=== PATIENT | female | born 1965 | race Caucasian/White ===

== ENCOUNTER 2021-01-03 09:41 | Emergency (ER) | payer OTHER ==
[2021-01-03] MEDS ORDERED: FAMOTIDINE 20 MG TAB ONE (10:18)
[2021-01-03] MEDS ORDERED: METHYLPREDNISOLONE 125 MG INJ ONE (10:18)
--- NOTE | 2021-01-03 10:36 | ER ---
Nurse's Notes [facility] Name: Telma Velez Age: 55 yrs Sex: Female : 1965 Arrival Date: 01/03/2021 Time: 09:44 Bed 17 Private MD: Braden Davies T Diagnosis: Allergic contact dermatitis due to plants, except food Presentation: 01/03 09:55 Chief complaint: Patient states: itchy rash x 3 days after exposure to poison sumac. ss Coronavirus screen: Client denies travel out of the [place] in the last 14 days. Ebola Screen: Patient denies exposure to infectious person. Patient denies travel to an Ebola-affected area in the 21 days before illness onset. Initial Sepsis Screen: Does the patient meet any 2 criteria? No. Patient's initial sepsis screen is negative. Does the patient have a suspected source of infection? No. Patient's initial sepsis screen is negative. Risk Assessment: Do you want to hurt yourself or someone else? Patient reports no desire to harm self or others. 09:55 Method Of Arrival: Ambulatory ss 09:55 Acuity: DAISHA 5 ss 10:34 Onset of symptoms was December 31, 2020. ec1 Triage Assessment: 10:34 General: Behavior is calm, cooperative, appropriate for age. ec1 Historical: - Allergies: 10:00 PENICILLINS; ss 10:00 Sulfa (Sulfonamide Antibiotics); ss - PMHx: 10:00 Depression; Fibromyalgia; ss - Immunization history:: Adult Immunizations up to date. - Social history:: Smoking status: Patient denies any tobacco usage or history of. Screenin:25 Abuse screen: Denies threats or abuse. Denies injuries from another. Nutritional ec1 screening: No deficits noted. Tuberculosis screening: No symptoms or risk factors identified. Fall Risk None identified. Assessment: 09:50 General: Appears in no apparent distress. uncomfortable, well groomed. Pain: Denies ec1 pain. Respiratory: No deficits noted. Derm: Pt has rash to face, limbs, torso from Poison Eda. Same is red and inflamed. c/o feeling cold. Vital Signs: 09:50 BP 143 / 84; Pulse 102; Resp 18; Pulse Ox 97% ; ec1 09:55 BP 143 / 84; Pulse 100; Resp 16; Pulse Ox 97% on R/A; Weight 99.79 kg; Height 5 ft. 4 ss in. (162.56 cm); Pain 0/10; 10:25 BP 143 / 84; Pulse 100; Resp 16; Pulse Ox 97% ; ec1 09:55 Body Mass Index 37.76 (99.79 kg, 162.56 cm) ED Course: 09:44 Patient arrived in ED. mr 09:44 Braden Davies MD is Private Physician. mr 09:47 Josefa Rowley FNP-C is [facility]. kb 09:47 Arnold Rose MD is Attending Physician. kb 09:58 Miranda Holcomb, SETH is Primary Nurse. [id number] 09:59 Triage completed. ss 10:00 Arm band placed on right wrist. ss 10:25 Patient has correct armband on for positive identification. Bed in low position. Call ec1 light in reach. 10:25 No provider procedures requiring assistance completed. Patient did not have IV access ec1 during this emergency room visit. Administered Medications: 10:07 Drug: SOLU-Medrol 125 mg Route: IM; Site: right gluteus; ec1 10:07 Drug: Pepcid 20 mg Route: PO; ec1 Outcome: 09:53 Discharge ordered by MD. kb 10:25 Discharged to home ambulatory. ec1 10:25 Condition: stable 10:25 Discharge instructions given to patient, Instructed on discharge instructions, follow up and referral plans. medication usage, Demonstrated understanding of instructions, follow-up care, medications, Prescriptions given X 3. 10:35 Patient left the ED. ec1 Signatures: Josefa Rowley FNP-C FNP-Diamond Rebecca TrotterFannie, RN RN ss Shonda Arzola RN RN ec1 Miranda Holcomb, RN RN [id number] Corrections: (The following items were deleted from the chart) 10:33 10:25 General: Appears in no apparent distress. uncomfortable, well groomed, ec1 ec1 10:33 10:25 Pain: Denies pain. ec1 ec1 10:33 10:25 Derm: Pt has rash to face, limbs, torso from Poison Eda. Same is red and ec1 inflamed. c/o feeling cold. ec1 10:33 10:25 Respiratory: No deficits noted. ec1 ec1
[2021-01-03 10:55] VITALS: BP 143/84; O2SAT 97
--- NOTE | 2021-01-04 10:36 | EDPHYS ---
Physician Documentation [facility] Name: Telma Velez Age: 55 yrs Sex: Female : 1965 Arrival Date: 01/03/2021 Time: 09:44 Bed 17 Private MD: Braden Davies T ED Physician Arnold Rose HPI: 01/03 19:24 This 55 yrs old Female presents to ER via Ambulatory with complaints of kb poison eda. 19:24 The patient's rash thought to be caused by Contact allergy poison sumak. The rash is kb located on the body diffusely. Onset: The symptoms/episode began/occurred 5 day(s) ago. Associated signs and symptoms: Pertinent positives: itching, Pertinent negatives: burning sensation, difficulty breathing, fever, nausea, Pain swelling of lips, swelling of throat, swelling of tongue, vomiting, wheezing. Severity of symptoms: At their worst the symptoms were moderate in the emergency department the symptoms are unchanged. Treatment given at home: OTC lotion/cream. The patient has experienced similar episodes in the past, a few times. The patient has not recently seen a physician. Historical: - Allergies: 10:00 PENICILLINS; ss 10:00 Sulfa (Sulfonamide Antibiotics); ss - PMHx: 10:00 Depression; Fibromyalgia; ss - Immunization history:: Adult Immunizations up to date. - Social history:: Smoking status: Patient denies any tobacco usage or history of. ROS: 19:23 Constitutional: Negative for fever, chills, and weight loss, Cardiovascular: Negative kb for chest pain, palpitations, and edema, Respiratory: Negative for shortness of breath, cough, wheezing, and pleuritic chest pain, Abdomen/GI: Negative for abdominal pain, nausea, vomiting, diarrhea, and constipation, MS/Extremity: Negative for injury and deformity, Neuro: Negative for headache, weakness, numbness, tingling, and seizure. 19:23 Skin: Positive for rash, diffusely. Exam: 19:23 Constitutional: This is a well developed, well nourished patient who is awake, alert, kb and in no acute distress. Head/Face: Normocephalic, atraumatic. Cardiovascular: Regular rate and rhythm with a normal S1 and S2. No gallops, murmurs, or rubs. Normal PMI, no JVD. No pulse deficits. Respiratory: Lungs have equal breath sounds bilaterally, clear to auscultation and percussion. No rales, rhonchi or wheezes noted. No increased work of breathing, no retractions or nasal flaring. Abdomen/GI: Soft, non-tender, with normal bowel sounds. No distension or tympany. No guarding or rebound. No evidence of tenderness throughout. Neuro: Awake and alert, GCS 15, oriented to person, place, time, and situation. Cranial nerves II-XII grossly intact. Motor strength 5/5 in all extremities. Sensory grossly intact. Cerebellar exam normal. Normal gait. 19:23 Skin: rash a moderate rash is noted, consistent with contact dermatitis, and is diffusely located. Vital Signs: 09:50 BP 143 / 84; Pulse 102; Resp 18; Pulse Ox 97% ; ec1 09:55 BP 143 / 84; Pulse 100; Resp 16; Pulse Ox 97% on R/A; Weight 99.79 kg; Height 5 ft. 4 ss in. (162.56 cm); Pain 0/10; 10:25 BP 143 / 84; Pulse 100; Resp 16; Pulse Ox 97% ; ec1 09:55 Body Mass Index 37.76 (99.79 kg, 162.56 cm) ss MDM: 09:47 Patient medically screened. kb 19:23 Data reviewed: vital signs, nurses notes. Data interpreted: Pulse oximetry: on room air kb is 97 %. Interpretation: normal. Counseling: I had a detailed discussion with the patient and/or guardian regarding: the historical points, exam findings, and any diagnostic results supporting the discharge/admit diagnosis, the need for outpatient follow up, a family practitioner, to return to the emergency department if symptoms worsen or persist or if there are any questions or concerns that arise at home. 19:27 ED course: Some areas of skin broken with redness surrounding. Keflex prescribed for kb secondary infection. Administered Medications: 10:07 Drug: SOLU-Medrol 125 mg Route: IM; Site: right gluteus; ec1 10:07 Drug: Pepcid 20 mg Route: PO; ec1 Disposition: 01/03/21 09:53 Discharged to Home. Impression: Allergic contact dermatitis due to plants, except food. - Condition is Stable. - Discharge Instructions: Poison Eda Dermatitis, [id number]. - Prescriptions for Keflex 500 mg Oral Capsule - take 1 capsule by ORAL route every 12 hours for 7 days; 14 capsule. Pepcid 20 mg Oral Tablet - take 1 tablet by ORAL route every 12 hours for 5 days; 10 tablet. Prednisone 20 mg Oral Tablet - take 1 tablet by ORAL route once daily for 5 days; 5 tablet. - Work release form, Medication Reconciliation Form, Thank You Letter, Antibiotic Education, Prescription Opioid Use form. - Follow up: Emergency Department; When: As needed; Reason: Worsening of condition. Follow up: Private Physician; When: 2 - 3 days; Reason: Recheck today's complaints, Continuance of care, Re-evaluation by your physician. Addendum: 01/06/2021 05:57 Co-signature as Attending Physician, Arnold Rose MD I agree with the assessment and k dr plan of care. Signatures: Josefa Rowley, BOWLING ALLEY REFINISHER-C BOWLING ALLEY REFINISHER-Ckb Arnold Rose MD MD [facility] Fannie Souza RN RN ss Shonda Arzola RN RN ec1 Corrections: (The following items were deleted from the chart) 01/03 10:35 09:53 01/03/2021 09:53 Discharged to Home. Impression: Allergic contact dermatitis due ec1 to plants, except food. Condition is Stable. Forms are Medication Reconciliation Form, Thank You Letter, Antibiotic Education, Prescription Opioid Use. Follow up: Emergency Department; When: As needed; Reason: Worsening of condition. Follow up: Private Physician; When: 2 - 3 days; Reason: Recheck today's complaints, Continuance of care, Re-evaluation by your physician. kb 19:27 19:24 Onset: The symptoms/episode began/occurred last week, kb kb
== END 2021-01-03 10:35 | disposition home or self-care (01) ==
LOC: ER 09:41
DX: L23.7 Allergic contact dermatitis due to plants, except food (principal); Z88.0 Allergy status to penicillin; Z88.2 Allergy status to sulfonamides
CPT/HCPCS: 96372; 99283; J2930

== ENCOUNTER 2021-01-05 11:41 | Emergency (ER) | payer OTHER ==
--- NOTE | 2021-01-05 13:48 | ER ---
Nurse's Notes [facility] Name: Telma Velez Age: 55 yrs Sex: Female : 1965 Arrival Date: 01/05/2021 Time: 11:45 Bed 6 Private MD: Diagnosis: Allergic contact dermatitis Presentation: 01/05 11:58 Chief complaint: Patient states: poison sumac exposure on Wednesday and was seen here on sv Wednesday. c/o chills. Coronavirus screen: Client denies travel out of the [place] in the last 14 days. At this time, the client does not indicate any symptoms associated with coronavirus-19. Ebola Screen: No symptoms or risks identified at this time. Risk Assessment: Do you want to hurt yourself or someone else? Patient reports no desire to harm self or others. Onset of symptoms was December 31, 2020. 11:58 Method Of Arrival: Ambulatory 11:58 Acuity: DAISHA 4 sv 11:59 Initial Sepsis Screen: Does the patient meet any 2 criteria? No. Patient's initial sv sepsis screen is negative. Does the patient have a suspected source of infection? No. Patient's initial sepsis screen is negative. Triage Assessment: 12:00 General: Appears in no apparent distress. uncomfortable, well groomed, well developed, sv Behavior is calm, cooperative, appropriate for age. Neuro: Level of Consciousness is awake, alert, obeys commands, Oriented to person, place, time, situation, Moves all extremities. Full function. Respiratory: Airway is patent Respiratory effort is even, unlabored, Respiratory pattern is regular, symmetrical. 14:23 Pain: Denies pain. ll1 Historical: - Allergies: 11:59 PENICILLINS; sv 11:59 Sulfa (Sulfonamide Antibiotics); sv - PMHx: 11:59 Depression; Fibromyalgia; sv - Immunization history:: Adult Immunizations. - Social history:: Smoking status: Patient denies any tobacco usage or history of. - Family history:: not pertinent. Screenin:22 Abuse screen: Denies threats or abuse. Nutritional screening: No deficits noted. ll1 Tuberculosis screening: No symptoms or risk factors identified. Fall Risk None identified. Total Coleman Fall Scale indicates No Risk (0-24 pts). Assessment: 13:00 Reassessment: No changes from previously documented assessment. Patient and/or family ll1 updated on plan of care and expected duration. Pain level reassessed. Patient is alert, oriented x 3, equal unlabored respirations, skin warm/dry/pink. 14:00 Reassessment: No changes from previously documented assessment. Patient and/or family ll1 updated on plan of care and expected duration. Pain level reassessed. Patient is alert, oriented x 3, equal unlabored respirations, skin warm/dry/pink. Vital Signs: 11:59 BP 159 / 94; Pulse 86; Resp 18; Temp 98.7; Pulse Ox 100% ; Weight 102.97 kg; Height 5 sv ft. 4 in. (162.56 cm); Pain 0/10; 11:59 Body Mass Index 38.97 (102.97 kg, 162.56 cm) sv ED Course: 11:45 Patient arrived in ED. mr 11:57 Arm band placed on. sv 11:59 Triage completed. sv 12:32 Patient placed in an exam room, on a stretcher. ll1 12:33 Khanh Arreaga MD is Attending Physician. [facility] 12:52 Vidal Orosco RN is Primary Nurse. ll1 14:22 Patient has correct armband on for positive identification. Bed in low position. Call ll1 light in reach. Side rails up X 1. Cardiac monitoring not applicable on this patient. 14:22 No provider procedures requiring assistance completed. Patient did not have IV access ll1 during this emergency room visit. Administered Medications: 14:01 Drug: predniSONE 40 mg Route: PO; ll1 14:21 Follow up: Response: No adverse reaction; RASS: Alert and Calm (0) ll1 14:01 Drug: Pepcid 40 mg Route: PO; ll1 14:21 Follow up: Response: No adverse reaction; RASS: Alert and Calm (0) ll1 14:01 Drug: Benadryl 50 mg Route: PO; ll1 14:21 Follow up: Response: No adverse reaction; RASS: Alert and Calm (0) ll1 Outcome: 13:47 Discharge ordered by . fabiola 14:22 Discharged to home ambulatory. ll1 14:22 Condition: stable 14:22 Discharge instructions given to patient, Instructed on discharge instructions, follow up and referral plans. medication usage, Demonstrated understanding of instructions, follow-up care, medications, Prescriptions given X 3. 14:23 Patient left the ED. ll1 Signatures: Dorothy Huffman RN RN Khanh Morales MD MD [facility] mr Vidal Orosco RN RN ll1 Corrections: (The following items were deleted from the chart) 12:01 11:59 Pulse 86bpm; Resp 18bpm; Pulse Ox 100%; Temp 98.7F; 102.97 kg; Height 5 ft. 4 sv in.; BMI: 38.9; Pain 0/10; sv
--- NOTE | 2021-01-05 13:48 | EDPHYS ---
Physician Documentation [facility] Name: Telma Velez Age: 55 yrs Sex: Female : 1965 Arrival Date: 01/05/2021 Time: 11:45 Bed 6 Private MD: ED Physician Khanh Arreaga HPI: 01/05 13:39 This 55 yrs old Female presents to ER via Ambulatory with complaints of fabiola Poison Eda. 13:39 The patient's rash thought to be caused by Dermatitis Contact allergy. The rash is fabiola located on the body diffusely. The rash can be described as confluent, erythematous, raised. Onset: The symptoms/episode began/occurred 1 week(s) ago. Associated signs and symptoms: Pertinent positives: burning sensation, itching, Pain. Severity of symptoms: At their worst the symptoms were moderate in the emergency department the symptoms are unchanged. The patient presents with itching, rash, redness of skin. Associated signs and symptoms: Pertinent positives: rash. Possible causes: poison eda, poison oak. Historical: - Allergies: 11:59 PENICILLINS; sv 11:59 Sulfa (Sulfonamide Antibiotics); sv - PMHx: 11:59 Depression; Fibromyalgia; sv - Immunization history:: Adult Immunizations. - Social history:: Smoking status: Patient denies any tobacco usage or history of. - Family history:: not pertinent. ROS: 13:39 Constitutional: Negative for fever, chills, and weight loss, Eyes: Negative for injury, fabiola pain, redness, and discharge, ENT: Negative for injury, pain, and discharge, Neck: Negative for injury, pain, and swelling, Cardiovascular: Negative for chest pain, palpitations, and edema, Respiratory: Negative for shortness of breath, cough, wheezing, and pleuritic chest pain, Abdomen/GI: Negative for abdominal pain, nausea, vomiting, diarrhea, and constipation, Back: Negative for injury and pain, : Negative for injury, bleeding, discharge, and swelling, MS/Extremity: Negative for injury and deformity, Neuro: Negative for headache, weakness, numbness, tingling, and seizure, Psych: Negative for depression, anxiety, suicide ideation, homicidal ideation, and hallucinations, Allergy/Immunology: Negative for hives, rash, and allergies, Endocrine: Negative for neck swelling, polydipsia, polyuria, polyphagia, and marked weight changes. 13:39 Skin: Positive for erythema, rash, swelling, diffusely. Exam: 13:39 Constitutional: This is a well developed, well nourished patient who is awake, alert, fabiola and in no acute distress. Head/Face: Normocephalic, atraumatic. Eyes: Pupils equal round and reactive to light, extra-ocular motions intact. Lids and lashes normal. Conjunctiva and sclera are non-icteric and not injected. Cornea within normal limits. Periorbital areas with no swelling, redness, or edema. ENT: Nares patent. No nasal discharge, no septal abnormalities noted. Tympanic membranes are normal and external auditory canals are clear. Oropharynx with no redness, swelling, or masses, exudates, or evidence of obstruction, uvula midline. Mucous membranes moist. Neck: Trachea midline, no thyromegaly or masses palpated, and no cervical lymphadenopathy. Supple, full range of motion without nuchal rigidity, or vertebral point tenderness. No Meningismus. Chest/axilla: Normal chest wall appearance and motion. Nontender with no deformity. No lesions are appreciated. Cardiovascular: Regular rate and rhythm with a normal S1 and S2. No gallops, murmurs, or rubs. Normal PMI, no JVD. No pulse deficits. Respiratory: Lungs have equal breath sounds bilaterally, clear to auscultation and percussion. No rales, rhonchi or wheezes noted. No increased work of breathing, no retractions or nasal flaring. Abdomen/GI: Soft, non-tender, with normal bowel sounds. No distension or tympany. No guarding or rebound. No evidence of tenderness throughout. Back: No spinal tenderness. No costovertebral tenderness. Full range of motion. Female : Normal external genitalia. MS/ Extremity: Pulses equal, no cyanosis. Neurovascular intact. Full, normal range of motion. Neuro: Awake and alert, GCS 15, oriented to person, place, time, and situation. Cranial nerves II-XII grossly intact. Motor strength 5/5 in all extremities. Sensory grossly intact. Cerebellar exam normal. Normal gait. Psych: Awake, alert, with orientation to person, place and time. Behavior, mood, and affect are within normal limits. 13:39 Skin: Appearance: Color: normal in color, pink, Temperature: normal temperature, Moisture: normal moisture, petechiae, not noted, ecchymosis, not noted, abscess, not appreciated, cellulitis, is not appreciated, injury, is not appreciated, contact dermatitis. Vital Signs: 11:59 BP 159 / 94; Pulse 86; Resp 18; Temp 98.7; Pulse Ox 100% ; Weight 102.97 kg; Height 5 sv ft. 4 in. (162.56 cm); Pain 0/10; 11:59 Body Mass Index 38.97 (102.97 kg, 162.56 cm) sv MDM: 12:33 Patient medically screened. [facility] 13:39 Differential diagnosis: allergic reaction, angioedema, urticaria. Data reviewed: vital fabiola signs, nurses notes. Data interpreted: residential monitor: not applicable for this patient encounter. rate is 86 beats/min, rhythm is regular, Pulse oximetry: on room air is 100 %. Counseling: I had a detailed discussion with the patient and/or guardian regarding: the historical points, exam findings, and any diagnostic results supporting the discharge/admit diagnosis, the need for outpatient follow up, for definitive care, a customer service leader, a family practitioner. Administered Medications: 14:01 Drug: predniSONE 40 mg Route: PO; ll1 14:21 Follow up: Response: No adverse reaction; RASS: Alert and Calm (0) ll1 14:01 Drug: Pepcid 40 mg Route: PO; ll1 14:21 Follow up: Response: No adverse reaction; RASS: Alert and Calm (0) ll1 14:01 Drug: Benadryl 50 mg Route: PO; ll1 14:21 Follow up: Response: No adverse reaction; RASS: Alert and Calm (0) ll1 Disposition: 01/05/21 13:47 Discharged to Home. Impression: Allergic contact dermatitis. - Condition is Stable. - Discharge Instructions: Poison Eda Dermatitis, Poison Eda Dermatitis, [id number]. - Prescriptions for Hydroxyzine HCl 50 mg Oral Tablet - take 1 tablet by ORAL route every 8 hours As needed; 20 tablet. Pepcid 20 mg Oral Tablet - take 1 tablet by ORAL route every 12 hours for 15 days; 30 tablet. Prednisone 20 mg Oral Tablet - take 2 tablet by ORAL route once daily for 5 days; 10 tablet. - Work release form, Medication Reconciliation Form, Thank You Letter, Antibiotic Education, Prescription Opioid Use form. - Follow up: Private Physician; When: 2 - 3 days; Reason: Recheck today's complaints, Continuance of care, Re-evaluation by your physician. - Problem is new. - Symptoms have improved. Signatures: Dorothy Huffman, RN RN Khanh Morales MD MD cha Lewis, Lynsay, RN RN ll1 Corrections: (The following items were deleted from the chart) 14:23 13:47 01/05/2021 13:47 Discharged to Home. Impression: Allergic contact dermatitis. ll1 Condition is Stable. Forms are Medication Reconciliation Form, Thank You Letter, Antibiotic Education, Prescription Opioid Use. Follow up: Private Physician; When: 2 - 3 days; Reason: Recheck today's complaints, Continuance of care, Re-evaluation by your physician. Problem is new. Symptoms have improved. fabiola
[2021-01-05] MEDS ORDERED: FAMOTIDINE 20 MG TAB ONE (14:14)
[2021-01-05] MEDS ORDERED: DIPHENHYDRAMINE 25 MG TAB/CAP ONE (14:14)
[2021-01-05] MEDS ORDERED: predniSONE 20 MG TAB ONE (14:14)
[2021-01-05 14:31] VITALS: BP 159/94; TEMP 98.7; O2SAT 100
== END 2021-01-05 14:23 | disposition home or self-care (01) ==
LOC: ER 11:41
DX: L23.9 Allergic contact dermatitis, unspecified cause (principal); Z88.0 Allergy status to penicillin; Z88.2 Allergy status to sulfonamides
CPT/HCPCS: 99283; J7512

== ENCOUNTER 2022-07-14 15:36 | Inpatient (IN) | payer OTHER ==
--- OUTSIDE RECORDS SUMMARY | 2022-07-14 15:38 | XMS REPORT | Continuity of Care Document ---
:1965 Author Organization [facility] t Address [address] [place] [address] Care Team Providers Name Role Phone DEREK CESAR Primary Care Physician Unavailable Harika Campbell Attending Clinician Unavailable Annabelle MAURO, Rocco Attending Clinician ROCCO NOGUERA Attending Clinician Unavailable Payers Payer Name Policy Type Policy Number Effective Date Expiration Date S ource Problems Condition Condition Condition Status Onset Resolution Last Treating Co mments Source Name Details Category Date Date Treatment Clinician Date Colon Colon Disease Active [facility] cancer cancer 6-15 [place] Scre[place] Scre[place] Disease Active Uni vers for for 6-15 [place] malignant malignant [place] [facility] of the of the Branch cervix cervix BMI BMI Disease Active Univers 40.0-44.9, 40.0-44.9, 6-15 it y of adult adult 00:00: [place] 00 [facility] Allergies, Adverse Reactions, Alerts Allergy Allergy Status Severity Reaction(s) Onset Inactive Treating Comm ents Source Name Type Date Date Clinician Penicill Propensi Active Unknown - Uni vers in ty to See comments 6-14 ity of adverse 00:00: [place] reaction 00 Medical s Branch Sulfur Propensi Active Unknown - PRODUCTS Uni vers ty to See comments 6-14 ity of adverse 00:00: [place] reaction 00 Medical s Branch PENICILL DRUG Active Unknown-Cmnt Un patricio IN [place]GRED[place] 04-21 ity of 00:00: [place] 00 Medical Branch SULFUR DRUG Active Unknown-Cmnt Univ ers [place] 04-21 ity of 00:00: [place] 00 Medical Branch Social History Social Habit Start Date Stop Date Quantity Comments Source Alcohol intake 2022-04-22 2022-04-22 1.43 /d [facility] 00:00:00 00:00:00 [facility] Tobacco use and 2022-04-21 2022-04-21 Never used [facility] exposure 00:00:00 00:00:00 [facility] Exposure to 2022-04-10 2022-04-20 Not sure [facility] SARS-CoV-2 (event) 00:00:00 14:49:00 Medica l [place] History of tobacco 1989-11-08 Smoker [facility] use 00:00:00 [facility] Sex Assigned At [birth year] [facility] 00:00:00 00:00:00 [facility] Smoking Status Start Date Stop Date Source Former smoker 2022-04-21 00:00:00 2022-04-21 00:00:00 [facility] Medications Ordered Filled Start Stop Current Ordering Indication Dosage Frequency Signature Comments Components Source Medication Medication Date Date Medication? Clinician (SIG) Name Name candesartan Yes 1{tbl} Take 1 Un patricio -hydrochlor 5-25 tablet by ity of othiazide 00:00: mouth [place] 16-12.5 mg 00 every Medical per tablet morning. Branc h pregabalin Yes TAKE ONE Uni vers 50 mg 5-03 (1) it[place] of capsule 00:00[place] BY M[place]TH Medical TWICE A Branch DAY. FLUoxetine Yes TAKE ONE Uni vers 20 mg 4-29 (1) it[place] of capsule 00:00[place] BY MOUTH Medical EVERY Branch MORNING. Immunizations Ordered Filled Immunization Date Status Comments Sourc e Immunization Name Name SARS-COV-2 COVID-19 2021-11-10 Completed Unive rsity of MODERNA VACCINE 00:00:00 [facility] ica Branch SARS-COV-2 COVID-19 2021-03-11 Completed Unive rsity of MODERNA VACCINE 00:00:00 [facility] SARS-COV-2 COVID-19 2021-02-11 Completed Unive rsity of MODERNA VACCINE 00:00:00 [facility] Vital Signs Vital Name Observation Time Observation Value Comments Source Systolic blood 2022-04-21 19:49:00 126 mm[Hg] Univer sity of pressure [facility] Diastolic blood 2022-04-21 19:49:00 78 mm[Hg] Unive rsity of pressure [facility] Heart rate 2022-04-21 19:49:00 78 /min [facility] Body temperature 2022-04-21 19:49:00 [facility] height 2022-04-21 19:49:00 162.6 cm [facility] Body weight 2022-04-21 19:49:00 109.272 kg [facility] BMI 2022-04-21 19:49:00 41.35 kg/m2 [facility] Procedures Procedure Date / Time Performed Performing Clinician [facility] e PAP SMEAR-LIQUID 2022-04-21 20:04:00 Rocco Noguera [facility] Encounters Start End Encounter Admission Attending Care Care Encounter Source Date/Time Date/Time Type Type Clinicians Facility Department ID 2021-12-03 Outpatient Anujchristofer [facility] [id number] Common 14:37:05 Harika [facility] - [facility] 2022-04-21 2022-04-21 Office Annabelle [facility] [place] [id number] Univers 14:30:00 15:06:08 Visit Rocco VENTURA [id number] it y of WOMEN'S [id number] [facility] Smackages [id number] [facility] [address] Branch 2022-04-21 2022-04-21 Outpatient R ROCCO NOGUERA [facility] [id number] Univers 14:30:00 15:06:08 ROCCO NOGUERA [facility] Results This patient has no known results.
[2022-07-14] MEDS ORDERED: ASPIRIN 81 MG CHEWABLE TABLET ONE (17:00)
[2022-07-14] MEDS ORDERED: METOPROLOL TAR 25 MG TAB ONE (17:01)
[2022-07-14 17:19] LABS: Protime INR 1.04
[2022-07-14 17:20] LABS: Absolute Lymphocytes (CBC) 1.3 K/uL (0.7-4.9); Hematocrit 37.7 % (36.0-45.0); MPV 8.7 fL (7.6-11.3); RBC Red Blood Cell Count 4.14 M/uL (3.86-4.86)
[2022-07-14 17:32] LABS: Albumin 3.3 g/dL (3.4-5.0); Bilirubin Direct 0.1 mg/dL (0-0.2); Bilirubin Total 0.6 mg/dL (0.2-1.0); Protein, Total 6.7 g/dL (6.4-8.2); Troponin High Sensitivity 8.7 pg/mL (<58.9)
[2022-07-14 17:44] LABS: SARS-CoV-2 Antigen Rapid Res Negative (Negative)
--- NOTE | 2022-07-14 18:17 | ER ---
Nurse's Notes [facility] Name: Telma Velez Age: 57 yrs Sex: Female : 1965 Arrival Date: 07/14/2022 Time: 15:37 Bed 17 Private MD: Braden Davies T Diagnosis: Unspecified atrial fibrillation Presentation: 07/14 16:16 Chief complaint: Patient states: SOB X [address] Davies today - was told to ld1 come to ER due to SOB and irregular heart rate. SpO2 94% RA. Coronavirus screen: At this time, the client does not indicate any symptoms associated with coronavirus-19. Ebola Screen: No symptoms or risks identified at this time. Initial Sepsis Screen: Does the patient meet any 2 criteria? No. Patient's initial sepsis screen is negative. Does the patient have a suspected source of infection? No. Patient's initial sepsis screen is negative. Risk Assessment: Do you want to hurt yourself or someone else? Patient reports no desire to harm self or others. Onset of symptoms was July 14, 2022. 16:16 Method Of Arrival: Ambulatory ld1 16:16 Acuity: DAISHA 3 ld1 Triage Assessment: 16:18 General: Appears in no apparent distress. comfortable, Behavior is calm, cooperative, ld1 appropriate for age. Pain: Complains of pain in lateral aspect of right calf, right calf, medial aspect of right calf and right bello Pain does not radiate. Pain currently is 0 out of 10 on a pain scale. at worst was 7 out of 10 on a pain scale. Quality of pain is described as throbbing, Pain began suddenly, Is intermittent. EENT: No signs and/or symptoms were reported regarding the EENT system. Neuro: Level of Consciousness is awake, alert, obeys commands, Oriented to person, place, time, situation. Cardiovascular: Capillary refill < 3 seconds Patient's skin is warm and dry. Rhythm is irregular. Respiratory: Airway is patent Respiratory effort is even, unlabored, Onset: The symptoms/episode began/occurred 4 days ago, the patient has mild shortness of breath. GI: Abdomen is round non-distended. : No signs and/or symptoms were reported regarding the genitourinary system. Derm: No signs and/or symptoms reported regarding the dermatologic system. Musculoskeletal: No signs and/or symptoms reported regarding the musculoskeletal system. Historical: - Allergies: 16:18 PENICILLINS; ld1 16:18 Sulfa (Sulfonamide Antibiotics); ld1 - PMHx: 16:18 Depression; Fibromyalgia; ld1 - PSHx: 16:18 None; ld1 - Immunization history:: Adult Immunizations up to date, Client reports receiving the 2nd dose of the Covid vaccine. - Social history:: Smoking status: Patient denies any tobacco usage or history of. Patient/guardian denies using alcohol. Screenin:12 Abuse screen: Denies threats or abuse. Denies injuries from another. Nutritional tp1 screening: No deficits noted. Tuberculosis screening: No symptoms or risk factors identified. Fall Risk No fall in past 12 months (0 pts). No secondary diagnosis (0 pts). IV access (20 points). Ambulatory Aid- None/Bed Rest/Nurse Assist (0 pts). Gait- Normal/Bed Rest/Wheelchair (0 pts) Mental Status- Oriented to own ability (0 pts). Total Coleman Fall Scale indicates No Risk (0-24 pts). Assessment: 16:42 General: Appears in no apparent distress. comfortable, Behavior is calm, cooperative. tp1 Pain: Complains of pain in right knee Pain radiates to right leg Pain currently is 3 out of 10 on a pain scale. at worst was 7 out of 10 on a pain scale. Quality of pain is described as throbbing, Pain began 1 week. Neuro: Level of Consciousness is awake, alert, obeys commands, Oriented to person, place, time, situation, Reports blurred vision headache. Cardiovascular: Capillary refill < 3 seconds in bilateral fingers toes Patient's skin is warm and dry. Respiratory: Reports shortness of breath at rest on exertion Airway is patent Respiratory effort is even, unlabored, Breath sounds with wheezes bilaterally. on expiration. GI: Abdomen is round non-distended, Reports diarrhea, Patient currently denies nausea, vomiting. : No signs and/or symptoms were reported regarding the genitourinary system. EENT: No signs and/or symptoms were reported regarding the EENT system. Derm: Skin is pink, warm \T\ dry. Musculoskeletal: Circulation, motion, and sensation intact. 17:51 Reassessment: Patient appears in no apparent distress at this time. Patient and/or tp1 family updated on plan of care and expected duration. Pain level reassessed. Patient is alert, oriented x 3, equal unlabored respirations, skin warm/dry/pink. denies pain and SOB at this time. 18:05 Reassessment: ultrasound at bedside. tp1 18:50 Reassessment: Patient appears in no apparent distress at this time. Patient and/or tp1 family updated on plan of care and expected duration. Pain level reassessed. Patient is alert, oriented x 3, equal unlabored respirations, skin warm/dry/pink. Patient denies pain at this time. Vital Signs: 16:16 BP 158 / 116; Pulse 96; Resp 20; Temp 98.3(O); Pulse Ox 94% on R/A; Weight 106.59 kg; ld1 Height 5 ft. 3 in. (160.02 cm); Pain 0/10; 16:49 BP 146 / 98; Pulse 101; Resp 15; Pulse Ox 97% on R/A; vg1 17:59 BP 150 / 95; Pulse 91; Resp 16; Pulse Ox 98% on R/A; tp1 16:16 Body Mass Index 41.63 (106.59 kg, 160.02 cm) ld1 ED Course: 15:37 Patient arrived in ED. am2 15:37 Braden Davies MD is Private Physician. am2 15:59 [facility] cp 16:00 Brendon Katz MD is Attending Physician. cp 16:18 Triage completed. ld1 16:18 Arm band placed on right wrist. EKG completed in triage. Results shown to MD. ld1 16:27 Inserted saline lock: 20 gauge in right antecubital area, using aseptic technique. ld1 Blood collected. 16:47 Suzi Rubio, SETH is Primary Nurse. tp1 16:49 Patient has correct armband on for positive identification. Placed in gown. Bed in low vg1 position. Call light in reach. Side rails up X 1. Adult w/ patient. Client placed on continuous cardiac and pulse oximetry monitoring. NIBP monitoring applied. 18:16 Rashad Olvera MD is Hospitalizing Provider. cp 19:25 No provider procedures requiring assistance completed. Patient admitted, IV remains in lg3 place. intact, No redness/swelling at site. 20:30 role handed off by Jessica Staples RN Administered Medications: 16:56 Drug: Metoprolol 25 mg Route: PO; tp1 19:26 Follow up: Response: No adverse reaction; Marked relief of symptoms lg3 16:56 Drug: Aspirin Chewable Tablet 324 mg Route: PO; tp1 19:26 Follow up: Response: No adverse reaction lg3 18:30 Drug: Lovenox (enoxaparin) 1 mg/kg Route: Sub-Q; Site: right lower abdomen; tp1 19:25 Follow up: Response: No adverse reaction lg3 Medication: 16:49 VIS not applicable for this client. vg1 Outcome: 18:17 Decision to Hospitalize by Provider. cp 19:25 Admitted to ER Hold. Please see [facility] for further documentation. lg3 19:25 Condition: stable 19:25 Instructed on the need for admit, Demonstrated understanding of instructions. 07/15 21:19 Patient left the ED. vc1 Signatures: Khanh Hensley PA PA cp Sharri Lang am2 Brooklynn Marie RN RN lg3 Jessica Staples RN RN vg1 Milady Dietrich RN RN ld1 Radha Castellon Tiffany, RN RN tp1 Kriss Preciado RN RN vc1 Corrections: (The following items were deleted from the chart) 07/14 17:13 16:42 Respiratory: Reports shortness of breath at rest on exertion Airway is patent tp1 Respiratory effort is even, unlabored, tp1 17:19 16:42 Respiratory: Reports shortness of breath at rest on exertion Airway is patent tp1 Respiratory effort is even, unlabored, tp1 18:30 18:29 Lovenox (enoxaparin) 1 mg/kg Sub-Q in right lower abdomen tp1 tp1
--- NOTE | 2022-07-14 18:17 | EDPHYS ---
Physician Documentation [facility] Name: Telma Velez Age: 57 yrs Sex: Female : 1965 Arrival Date: 07/14/2022 Time: 15:37 Bed 17 Private MD: Braden Davies T ED Physician Brendon Katz HPI: 07/14 16:30 This 57 yrs old Female presents to ER via Ambulatory with complaints of afib. cp 16:30 The patient has shortness of breath with light activity. cp 16:30 Onset: The symptoms/episode began/occurred 5 day(s) ago. Duration: The symptoms are cp continuous, and are steadily getting worse. The patient's shortness of breath is aggravated by light activity, is alleviated by rest. Associated signs and symptoms: Pertinent positives: right lower leg pain and swelling, Pertinent negatives: chest pain, productive cough, diaphoresis, fever, vomiting. Historical: - Allergies: 16:18 PENICILLINS; ld1 16:18 Sulfa (Sulfonamide Antibiotics); ld1 - PMHx: 16:18 Depression; Fibromyalgia; ld1 - PSHx: 16:18 None; ld1 - Immunization history:: Adult Immunizations up to date, Client reports receiving the 2nd dose of the Covid vaccine. - Social history:: Smoking status: Patient denies any tobacco usage or history of. Patient/guardian denies using alcohol. ROS: 16:35 Constitutional: Negative for body aches, chills, fever, poor PO intake. cp 16:35 Cardiovascular: Negative for chest pain, edema. 16:35 Respiratory: Positive for shortness of breath, on exertion. Negative for cough, wheezing. 16:35 Abdomen/GI: Negative for abdominal pain, nausea, vomiting, and diarrhea. Exam: 16:25 ECG was reviewed by the Attending Physician. cp 16:40 Constitutional: The patient appears in no acute distress, alert, awake, cp non-diaphoretic, non-toxic, well developed, well nourished. 16:40 Head/Face: Normocephalic, atraumatic. cp 16:40 Eyes: Periorbital structures: appear normal, Conjunctiva: normal, no exudate, no injection, Sclera: no appreciated abnormality, Lids and lashes: appear normal, bilaterally. 16:40 ENT: External ear(s): are unremarkable, Nose: is normal, Mouth: Lips: moist, Oral mucosa: moist, Posterior pharynx: Airway: no evidence of obstruction, patent. 16:40 Chest/axilla: Inspection: normal. 16:40 Cardiovascular: Rate: tachycardic, Rhythm: irregular, Edema: ankle edema, that is mild, JVD: is not appreciated. 16:40 Respiratory: the patient does not display signs of respiratory distress, Respirations: normal, no use of accessory muscles, no retractions, labored breathing, is not present, Breath sounds: are clear throughout, no decreased breath sounds, no stridor, no wheezing. 16:40 Abdomen/GI: Exam negative for discomfort, distension, guarding, Inspection: abdomen appears normal. 16:40 Back: pain, is absent, ROM is normal. 16:40 Musculoskeletal/extremity: Extremities: grossly normal except: noted in the right calf: pain, swelling, tenderness. 16:40 Skin: cellulitis, is not appreciated, no rash present. 16:40 Neuro: Orientation: to person, place \T\ time. Mentation: is normal, Motor: moves all fours, strength is normal, Sensation: is normal. Vital Signs: 16:16 BP 158 / 116; Pulse 96; Resp 20; Temp 98.3(O); Pulse Ox 94% on R/A; Weight 106.59 kg; ld1 Height 5 ft. 3 in. (160.02 cm); Pain 0/10; 16:49 BP 146 / 98; Pulse 101; Resp 15; Pulse Ox 97% on R/A; vg1 17:59 BP 150 / 95; Pulse 91; Resp 16; Pulse Ox 98% on R/A; tp1 16:16 Body Mass Index 41.63 (106.59 kg, 160.02 cm) ld1 MDM: 16:41 Patient medically screened. cp 17:00 Differential diagnosis: CHF exacerbation, Myocardial Infarction pneumonia, Pneumothorax cp pulmonary edema, Pulmonary Embolism Sepsis Unstable Angina cardiac arrythmia. 18:00 Data reviewed: vital signs, nurses notes, lab test result(s), EKG, radiologic studies, cp plain films. 18:00 Test interpretation: by ED physician or midlevel provider: ECG, plain radiologic cp studies. Counseling: I had a detailed discussion with the patient and/or guardian regarding: the historical points, exam findings, and any diagnostic results supporting the discharge/admit diagnosis, lab results, radiology results, the need for further work-up and treatment in the hospital. 18:15 Physician consultation: Brittney PALMER was called at 18:15, was contacted at 18:15, cp regarding admission, to the telemetry unit. patient's condition. 07/14 16:10 Order name: Basic Metabolic Panel ld1 07/14 16:10 Order name: CBC with Diff ld1 07/14 16:10 Order name: Troponin HS ld1 07/14 16:17 Order name: PT-INR 07/14 16:17 Order name: Ptt, Activated cp 07/14 16:17 Order name: D-Dimer 07/14 16:17 Order name: LFT's cp 07/14 16:17 Order name: BNP 07/14 16:43 Order name: SARS RAPID 07/14 17:19 Order name: Protime (+INR); Complete Time: 17:28 EDMS 07/14 17:19 Order name: PTT, Activated Partial Thromb; Complete Time: 17:28 EDMS 07/14 17:19 Order name: D-Dimer; Complete Time: 17:28 EDMS 07/14 17:22 Order name: CBC with Automated Diff; Complete Time: 17:28 EDMS 07/14 17:32 Order name: Basic Metabolic Panel; Complete Time: 17:52 EDMS 07/14 17:52 Interpretation: Normal except: GLUC 125; BUN 19; CA 8.4. 07/14 16:10 Order name: XRAY Chest (1 view) ld1 07/14 16:10 Order name: EKG; Complete Time: 22:31 ld1 07/14 16:17 Order name: US Extremity Venous Unilateral Ltd cp 07/14 17:32 Order name: Liver (Hepatic) Function; Complete Time: 17:52 EDMS 07/14 17:32 Order name: Troponin High Sensitivity; Complete Time: 17:52 EDMS 07/14 17:32 Order name: NT PRO-BNP; Complete Time: 17:52 EDMS 07/14 17:52 Interpretation: Reviewed. 07/14 17:44 Order name: SARS-COV-2 Antigen Rapid; Complete Time: 17:52 EDMS 07/14 18:56 Order name: RAD EDMS 07/14 19:01 Order name: US EDMS 07/15 02:58 Order name: Lipid Profile [facility] 07/15 02:58 Order name: Magnesium [facility] 07/15 02:58 Order name: Thyroid Stimulating Hormone [facility] 07/15 03:11 Order name: T4 Free [facility] 07/14 16:10 Order name: Cardiac monitoring; Complete Time: 16:48 [facility] 07/14 16:10 Order name: EKG - Nurse/Tech; Complete Time: 16:27 [facility] 07/14 16:10 Order name: IV Saline Lock; Complete Time: 16:27 [facility] 07/14 16:10 Order name: Labs collected and sent; Complete Time: 16:27 [facility] 07/14 16:10 Order name: O2 Per Protocol; Complete Time: 16:48 [facility] 07/14 16:10 Order name: O2 Sat Monitoring; Complete Time: 16:48 [facility] 07/14 16:53 Order name: Labs - recollect needed: recollect all labs please; Complete Time: 17:01 em1 EC:25 Rate is 100 beats/min. Rhythm is irregular. QRS interval is normal. QT interval is cp normal. T waves are Inverted in lead aVR. Interpreted by me. Reviewed by me. Administered Medications: 16:56 Drug: Metoprolol 25 mg Route: PO; tp1 19:26 Follow up: Response: No adverse reaction; Marked relief of symptoms lg3 16:56 Drug: Aspirin Chewable Tablet 324 mg Route: PO; tp1 19:26 Follow up: Response: No adverse reaction lg3 18:30 Drug: Lovenox (enoxaparin) 1 mg/kg Route: Sub-Q; Site: right lower abdomen; tp1 19:25 Follow up: Response: No adverse reaction lg3 Disposition: 17:49 Co-signature as Attending Physician, Brendon Katz MD. rn Disposition Summary: 07/14/22 18:17 Hospitalization Ordered Hospitalization Status: Inpatient Admission cp Provider: Rashad Olvera cp Condition: Stable cp Problem: new cp Symptoms: have improved cp Bed/Room Type: Standard cp Location: Telemetry/MedSurg (Inpatient)(07/15/22 19:17) dw Room Assignment: [facility](07/15/22 19:17) dw Diagnosis - Unspecified atrial fibrillation cp Forms: - Medication Reconciliation Form cp - SBAR form cp Signatures: Dispatcher [employer] Esme Acuna RN RN dw Brendon Katz MD MD rn Martinez, Sumanth em1 Khanh Hensley PA PA cp Shima Staples, RN RN cg Milady Dietrich RN RN ld1 Suzi Rubio RN RN tp1 Brooklynn Marie RN lg3 Corrections: (The following items were deleted from the chart) 17:54 07/13 16:35 Constitutional: Negative for body aches, chills, fever, poor PO intake, cp cp 07/14 17:54 07/13 16:35 Cardiovascular: Negative for chest pain, edema, cp cp 07/14 17:54 07/13 16:35 Respiratory: Positive for shortness of breath, on exertion. Negative for cp cough, wheezing, cp 07/14 17:54 07/13 16:35 Abdomen/GI: Negative for abdominal pain, nausea, vomiting, and diarrhea, cp cp 07/14 19:17 18:17 Telemetry/MedSurg (Inpatient) [facility] 19:17 18:17 cp cg 07/15 18:56 07/14 16:30 Associated signs and symptoms: Pertinent negatives: chest pain, productive cp cough, diaphoresis, fever, vomiting, cp 07/15 19:17 07/14 19:17 [facility] ER HOLD cg dw 07/15 19:17 07/14 19:17 ERHOLD- cg dw
[2022-07-14] MEDS ORDERED: ENOXAPARIN 100 MG/ML SYR SQ ONE (18:36)
--- NOTE | 2022-07-14 18:54 | RAD REPORT ---
EXAM DESCRIPTION: RAD - Chest Single View - 07/14/2022 6:36 pm CLINICAL HISTORY: chest pain COMPARISON: No comparisons FINDINGS: Lines: None. Lungs: No evidence of edema or pneumonia. Pleural: No significant pleural effusions or pneumothorax. Cardiac: The heart size is within normal limits. Mediastinum: Mild hilar fullness is nonspecific. Bones: No acute fractures. Other: None IMPRESSION: No acute cardiopulmonary disease.
--- NOTE | 2022-07-14 19:00 | RAD REPORT ---
EXAM DESCRIPTION: US - Extremity Venous Uni Ltd - 07/14/2022 6:27 pm CLINICAL HISTORY: Pain COMPARISON: None. TECHNIQUE: Real-time sonographic evaluation of the right lower extremity deep venous system was perf ormed. FINDINGS: Normal compressibility, flow augmentation, phasic flow and spontaneous flow is identified in the right lower extremity deep venous system. No intraluminal filling defects seen. IMPRESSION: No DVT in the right lower extremity.
--- NOTE | 2022-07-14 20:13 | P.HP ---
Certification for Inpatient Patient admitted to: Observation With expected LOS: <2 Midnights Patient will require the following post-hospital care: None Practitioner: I am a practitioner with admitting privileges, knowledge of patient current condition, hospital course, and medical plan of care. Services: Services provided to patient in accordance with Admission requirements found in Title 42 Section 412.3 of the Code of Federal Regulations Patient History Date of Service: 07/14/22 Primary Care Provider: Samson Reason for admission: Afib new onset History of Present Illness: Patient is a 57 year-old female with history of hypertension and fibromyalgia who presented to the ED with complaints of worsening EDWARD x 5 days. Patient reports that she went to see her PCP today who sent her to the ED to be evaluated. She was saturating 94% on RA and noted to be tachy at 130. EKG showed afib. Patient denies history of afib. She was given 25 mg PO metoprolol which brought HR down to the 80s and has remained, although still in afib. She was also given 324 mg aspirin and therapeutic lovenox. Her labs are unremarkable. She is admitted for further evaluation and treatment. Allergies Penicillins Allergy (Unverified 09/11/17 23:37) Unknown Sulfa (Sulfonamide Antibioti Allergy (Uncoded 09/11/17 23:37) Unknown Home medications list reviewed: Yes - Past Medical/Surgical History Diabetic: No -: Hypertension -: Fibromyalgia -: Depression Past Surgical History: Patient denies surgical history Psychosocial/ Personal History: Patient is . - Family History Father -: Heart disease Mother -: Heart disease Brother -: Other (see notes) (afib) - Social History Smoking Status: Former smoker Alcohol use: No CD- Drugs: No Caffeine use: Yes Place of Residence: Home Review of Systems Respiratory: SOB with Excertion Physical Examination - Physical Exam General: Alert, In no apparent distress HEENT: Atraumatic, PERRLA, EOMI, Sclerae nonicteric Neck: Supple, 2+ carotid pulse no bruit, No LAD, Without JVD or thyroid abnormality Respiratory: Clear to auscultation bilaterally, Normal air movement Cardiovascular: Irregular heart rate/rhythm Gastrointestinal: Normal bowel sounds, No tenderness Musculoskeletal: No tenderness Integumentary: No rashes Neurological: Normal speech, Normal strength at 5/5 x4 extr, Normal tone, Normal affect - Studies Laboratory Data (last 24 hrs) 07/14/22 17:00: PT 11.5, INR 1.04, APTT 32.6 07/14/22 17:00: WBC 7.00, Hgb 12.5, Hct 37.7, Plt Count 221 07/14/22 17:00: Sodium 139, Potassium 4.0, BUN 19 H, Creatinine 0.70, Glucose 125 H, Total Bilirubin 0.6, AST 29, ALT 47, Alkaline Phosphatase 62 Assessment and Plan - Problems (Diagnosis) (1) New onset atrial fibrillation Current Visit: Yes Status: Acute (2) Dyspnea on exertion Current Visit: Yes Status: Acute (3) Hypertension Current Visit: Yes Status: Chronic Qualifiers: Hypertension type: primary hypertension Qualified Code(s): I10 - Essential (primary) hypertension (4) Fibromyalgia Current Visit: Yes Status: Chronic - Plan -Patient denies personal history of afib. She denies chest pain. -Monitor patient on telemetry overnight -Cardiology consulted -Monitor pulse ox. Breathing treatments as needed -Echo ordered -Aspirin daily -Lipid and thyroid panel in morning -Monitor and replete electrolytes per protocol -Reconcile and continue home medications -Lovenox for DVT prophylaxis -Full code Discharge Plan: Home Plan to discharge in: 24 Hours - Advance Directives Does patient have a Living Will: No Does patient have a Durable POA for Healthcare: No - Code Status/Comfort Care Code Status Assessed: Yes (Full) Critical Care: No Time Spent Managing Pts Care (In Minutes): 50
[2022-07-14] MEDS ORDERED: ALBUTEROL 2.5 MG/3 ML NEB SOL NEB PRN (20:42)
[2022-07-14] MEDS ORDERED: ACETAMINOPHEN 500 MG TAB PO PRN (20:42)
[2022-07-14] MEDS ORDERED: ONDANSETRON 4 MG/2 ML VIAL IV PRN (20:42)
[2022-07-14 22:46] VITALS: BMI 41.6
[2022-07-15 02:56] LABS: Magnesium 2.1 mg/dL (1.8-2.4)
[2022-07-15 02:58] LABS: Thyroid Stimulating Hormone 4.47 uIU/mL (0.360-3.740)
[2022-07-15] MEDS: ASPIRIN EC 81 MG TAB PO SCH (09:00)
[2022-07-15] MEDS ORDERED: ENOXAPARIN 40 MG/0.4 ML SQ SCH (09:00)
[2022-07-15] MEDS ORDERED: ASPIRIN EC 81 MG TAB PO ONE (09:18)
[2022-07-15] MEDS ORDERED: ENOXAPARIN 40 MG/0.4 ML SQ ONE (09:18)
[2022-07-15] MEDS: SOTALOL HCL 80 MG TAB PO SCH ×2 (12:00→18:00)
[2022-07-15] MEDS ORDERED: ALBUTEROL 2.5 MG/3 ML NEB SOL NEB PRN (12:00)
[2022-07-15] MEDS ORDERED: SOTALOL HCL 80 MG TAB ONE ×2 (12:25→20:33)
--- NOTE | 2022-07-15 12:49 | EKG ---
Test Date: 2022-07-14 Test Time: 16:18:21 Thrill Performer: BUTCH MEASUREMENT RESULTS: Intervals: Rate: 100 AR: QRSD: 90 QT: 352 QTc: 454 Hamlin: P: AR: QRS: 57 T: 21 INTERPRETIVE STATEMENTS: Atrial fibrillation Abnormal ECG Compared to ECG 09/21/2004 18:32:00 Sinus bradycardia no longer present Electronically Signed On 07-15-22 12:47:58 CDT by George Mcclellan
--- NOTE | 2022-07-15 16:11 | P.PN ---
Subjective Date of Service: 07/15/22 Primary Care Provider: Samson Chief Complaint: Afib new onset Patient reports shortness of breath on exertion. She remains in A. fib but rate controlled. She denies any chest pain or palpitation. Physical Examination - Vital Signs Temperature: 97.6 F Blood Pressure: 121/87 Pulse: 87 Respirations: 18 Pulse Ox (%): 98 - Studies Laboratory Data (last 24 hrs) 07/14/22 17:00: PT 11.5, INR 1.04, APTT 32.6 07/14/22 17:00: WBC 7.00, Hgb 12.5, Hct 37.7, Plt Count 221 07/14/22 17:00: Sodium 139, Potassium 4.0, BUN 19 H, Creatinine 0.70, Glucose 125 H, Total Bilirubin 0.6, AST 29, ALT 47, Alkaline Phosphatase 62 07/14/22 16:17: PT Cancelled, INR Cancelled, APTT Cancelled 07/14/22 16:10: WBC Cancelled, Hgb Cancelled, Hct Cancelled, Plt Count Cancelled 07/14/22 16:10: Sodium Cancelled, Potassium Cancelled, BUN Cancelled, Creatinine Cancelled, Glucose Cancelled, Total Bilirubin Cancelled, AST Cancelled, ALT Cancelled, Alkaline Phosphatase Cancelled Assessment And Plan - Current Problems (Diagnosis) (1) New onset atrial fibrillation Current Visit: Yes Status: Acute (2) Fibromyalgia Current Visit: Yes Status: Chronic (3) Hypertension Current Visit: Yes Status: Chronic Qualifiers: Hypertension type: primary hypertension Qualified Code(s): I10 - Essential (primary) hypertension - Plan Physical Exam General: Alert, In no apparent distress HEENT: Sclerae nonicteric Neck: Supple, Without JVD or thyroid abnormality Respiratory: Clear to auscultation bilaterally, Normal air movement Cardiovascular: Irregular heart rate/rhythm Gastrointestinal: Normal bowel sounds, No tenderness Integumentary: No rashes Neurological: Normal speech, Normal strength at 5/5 x4 extr, Normal affect. Plan: Cardiology-Dr. Mcclellan's recommendation noted. Patient started on sotalol and Eliquis for A. fib anticoagulation Echocardiogram is pending. Monitor for tolerance to sotalol. Monitor and optimize electrolytes. Possible discharge in a.m.
[2022-07-15] MEDS: METOPROLOL TAR 25 MG TAB PO SCH (18:00)
--- NOTE | 2022-07-15 19:52 | CON ---
Date of Consultation: 07/15/2022 Reason For Consultation: New-onset atrial fibrillation. History Of Present Illness: 57-year-old female, no known cardiac history. She noted a recent shortn ess of breath on exertion and some palpitations. So, she presented to the emergency room where she w as found to be in atrial fibrillation with rapid ventricular response, slowed down with AV node block ing agents. However, she continues to be in AFib. Patient at rest, she is feeling well. Does not h ave any symptoms. Past Medical History: Hypertension, fibromyalgia, depression. Medications: Refer reconciliation sheet for detailed list. Allergies: SHE IS ALLERGIC TO PENICILLINS AND SULFA. Family History: No premature coronary artery disease or cancer. Social History: She is an ex-smoker, currently not. Does not drink alcohol or use any drugs. Review of Systems: All systems reviewed and they were negative except for mentioned in HPI. Physical Examination: Vital Signs: Reviewed. Head and Neck: Pupils are reactive to light. Intact eye movements. No JVD. No cervical lymphadeno jj. Neck is supple. Thyroid is not enlarged. Lungs: Clear to auscultation bilaterally. No rhonchi, rales, or crackles. No accessory muscle use. Heart: Irregularly irregular. No extra sounds. Abdomen: Soft, nontender. Bowel sounds positive. No organomegaly. No masses or hernia. No rigidi ty or rebound. Extremities: No edema, clubbing, or cyanosis. Intact pulses. Skin: No rash noted. Neurologic: On exam, alert, awake, oriented x3. No acute focal deficits appreciated. Investigations: BUN is 19, creatinine 0.7. NT-proBNP is 1596 and troponin is 8.7, hemoglobin 12.5. Assessment And Recommendations: 1.New-onset atrial fibrillation with rapid ventricular response. I have started her on sotalol 80 m g twice a day and Eliquis 5 mg twice a day. Discontinue Lovenox and to keep in the hospital overnigh t for an evaluation with an EKG after third dose of sotalol. If there is no QTc interval prolongatio n, patient can be released then. I will follow her up as an outpatient where we are going to obtain an ultrasound of the heart and a stress test to be done as an outpatient. 2.Dyspnea on exertion, likely due to her atrial fibrillation but likely she has also some diastolic heart failure. Recommend low-dose Lasix 20 mg by mouth daily. Low-salt diet and daily body weight a nd obtain echocardiogram. SR/ARVINDL Voice ID: [id number] Report ID: [id number]
[2022-07-15] MEDS: APIXABAN 5 MG TABLET PO SCH (20:27)
[2022-07-15] MEDS ORDERED: APIXABAN 5 MG TABLET ONE (20:33)
[2022-07-15] MEDS ORDERED: METOPROLOL TAR 25 MG TAB ONE (20:33)
[2022-07-16 04:02] LABS: Potassium 4.2 mmol/L (3.5-5.1)
[2022-07-16] MEDS: METOPROLOL TAR 25 MG TAB PO SCH (06:06)
[2022-07-16] MEDS: SOTALOL HCL 80 MG TAB PO SCH (06:07)
[2022-07-16 07:45] VITALS: O2SAT 97
[2022-07-16] MEDS: APIXABAN 5 MG TABLET PO SCH (07:45)
[2022-07-16] MEDS: ASPIRIN EC 81 MG TAB PO SCH (07:45)
--- NOTE | 2022-07-16 08:49 | ECHO ---
HEIGHT: 5 ft 3 in WEIGHT: 235 lb 0 oz DATE OF STUDY: 07/15/[address]: Brittney Izquierdo 2-DIMENSIONAL: YES M.MODE: YES DOPPLER: YES COLOR FLOW: YES TDS: NO PORTABLE: YES DEFINITY: NO BUBBLE STUDY: NO DIAGNOSIS: NEW ONSET ATRIAL FIBRILLATION CARDIAC HISTORY: CATHERIZATION: NO SURGERY: NO PROSTHETIC VALVE: NO PACEMAKER: NO MEASUREMENTS (cm) DIASTOLIC (NORMALS) SYSTOLIC (NORMALS) IVSd 0.9 (0.6-1.2) LA Diam 2.8 (1.9-4.0) LVEF 65% LVIDd 4.0 (3.5-5.7) LVIDs 2.6 (2.0-3.5) %FS 35% LVPWd 1.2 (0.6-1.2) Ao Diam 2.5 (2.0-3.7) 2 DIMENSIONAL ASSESSMENT: RIGHT ATRIUM: NORMAL LEFT ATRIUM: NORMAL RIGHT VENTRICLE: NORMAL LEFT VENTRICLE: NORMAL TRICUSPID VALVE: MILD TRICUSPID REGURGITATION MITRAL VALVE: MILD MITRAL REGURGITATION PULMONIC VALVE: NORMAL AORTIC VALVE: NORMAL PERICARDIAL EFFUSION: NONE AORTIC ROOT: NORMAL LEFT VENTRICULAR WALL MOTION: NORMAL (ATRIAL FIBRILLATION). DOPPLER/COLOR FLOW: SEE BELOW. COMMENTS: NORMAL LEFT VENTRICULAR EJECTION FRACTION 55-60%. ATRIAL FIBRILLATION WITH NORMAL WALL MOTION. MILD MITRAL REGURGITATION. MILD TRICUSPID REGURGITATION. TECHNOLOGIST: DICKSON BUCK
--- NOTE | 2022-07-16 08:53 | P.DS ---
Admission Date: 07/15/22 Discharge Date: 07/16/22 Primary Care Provider: Samson Disposition: ROUTINE DISCHARGE Discharge Condition: FAIR Reason for Admission: Afib new onset - Problems (1) New onset atrial fibrillation Status: Acute (2) Fibromyalgia Status: Chronic (3) Hypertension Status: Chronic Qualifiers: Hypertension type: primary hypertension Qualified Code(s): I10 - Essential (primary) hypertension Brief History of Present Illness: Patient is a 57 year-old female with history of hypertension and fibromyalgia who presented to the ED with complaints of worsening EDWARD x 5 days. Patient reports that she went to see her PCP who sent her to the ED to be evaluated. She was saturating 94% on RA and noted to be tachy at 130. EKG showed afib. Patient denied history of afib. She was given 25 mg PO metoprolol which brought HR down to the 80s but remained in afib. She was also given 324 mg aspirin and therapeutic lovenox. Her labs were unremarkable. She was admitted for further evaluation and treatment. Hospital Course: Patient was admitted to the medical floor. Her troponin was negative. She was placed on metoprolol 25 twice daily. She was seen by cardiology Dr. Mcclellan who started her on sotalol and Eliquis. Patient tolerated sotalol 80 mg twice daily. Echocardiogram demonstrated normal EF with no wall motion abnormality and no significant valvular abnormality. Patient deemed clinically stable for discharge. Vital Signs/Physical Exam: Temp Pulse Resp BP Pulse Ox 97.7 F 87 18 133/85 93 07/16/22 04:00 07/16/22 06:06 07/16/22 04:00 07/16/22 06:06 07/16/22 04:00 General: Alert, In no apparent distress, Oriented x3 HEENT: Mucous membr. moist/pink Neck: JVD not distended Respiratory: Clear to auscultation bilaterally, Normal air movement Cardiovascular: No edema, Normal S1 S2, Irregular heart rate/rhythm Gastrointestinal: Normal bowel sounds, Soft and benign, Non-distended, No tenderness Musculoskeletal: No swelling, No tenderness Integumentary: No rashes, No erythema, No cyanosis Neurological: Normal speech, Normal strength at 5/5 x4 extr Laboratory Data at Discharge: WBC 7.00 K/uL (4.3-10.9) 07/14/22 17:00 Hgb 12.5 g/dL (12.0-15.0) 07/14/22 17:00 Hct 37.7 % (36.0-45.0) 07/14/22 17:00 Plt Count 221 K/uL (152-406) 07/14/22 17:00 PT 11.5 SECONDS (9.5-12.5) 07/14/22 17:00 INR 1.04 07/14/22 17:00 APTT 32.6 SECONDS (24.3-36.9) 07/14/22 17:00 Sodium 138 mmol/L (136-145) 07/16/22 02:43 Potassium 4.2 mmol/L (3.5-5.1) 07/16/22 02:43 BUN 15 mg/dL (7-18) 07/16/22 02:43 Creatinine 0.64 mg/dL (0.55-1.3) 07/16/22 02:43 Glucose 98 mg/dL (74-106) 07/16/22 02:43 Magnesium 2.1 mg/dL (1.8-2.4) 07/15/22 02:01 Total Bilirubin 0.6 mg/dL (0.2-1.0) 07/14/22 17:00 AST 29 U/L (15-37) 07/14/22 17:00 ALT 47 U/L (12-78) 07/14/22 17:00 Alkaline Phosphatase 62 U/L (45-117) 07/14/22 17:00 Triglycerides 107 mg/dL (<150) 07/15/22 02:01 Cholesterol 166 mg/dL (<200) 07/15/22 02:01 HDL Cholesterol 59 mg/dL (40-60) 07/15/22 02:01 Cholesterol/HDL Ratio 2.81 07/15/22 02:01 Home Medications: ARIPiprazole [Abilify] 5 mg PO BEDTIME 07/15/22 Fluoxetine HCl [Prozac] 20 mg PO DAILY 07/15/22 Pregabalin [Lyrica*] 50 mg PO BID 07/15/22 Apixaban [Eliquis] 5 mg PO BID #60 tab 07/16/22 Aspirin [Aspirin EC 81 MG] 81 mg PO DAILY #30 tab 07/16/22 Metoprolol Tartrate [Lopressor*] 25 mg PO BID 6AM 6PM #60 tab 07/16/22 Sotalol HCl [Betapace*] 80 mg PO BID 6AM 6PM #60 tab 07/16/22 New Medications: Aspirin [Aspirin EC 81 MG] 81 mg PO DAILY #30 tab Sotalol HCl [Betapace*] 80 mg PO BID 6AM 6PM #60 tab Apixaban [Eliquis] 5 mg PO BID #60 tab Metoprolol Tartrate [Lopressor*] 25 mg PO BID 6AM 6PM #60 tab Diet: AHA Activity: Ad rosa maria Followup: Braden Davies MD [Primary Care Provider] - (Call to schedule appointment) George Mcclellan MD [ACTIVE - CAN ADMIT] - (Within 2 weeks) Time spent managing pt's care (in minutes): 34
[2022-07-16 09:21] VITALS: BP 138/76; TEMP 97.2
== END 2022-07-16 10:34 | disposition home or self-care (01) | DRG 310 ==
LOC: ER 15:36 → ERHOLD 19:43 → OBSVTOIN 07-15 16:27 → 4TH 07-15 19:33
PROVIDERS: ADMIT Internal Medicine; ATTEND Internal Medicine
DX: I48.91 Unspecified atrial fibrillation (principal); M79.7 Fibromyalgia; I10 Essential (primary) hypertension; Z88.0 Allergy status to penicillin; Z88.1 Allergy status to other antibiotic agents; Z79.01 Long term (current) use of anticoagulants; Z87.891 Personal history of nicotine dependence; Z79.82 Long term (current) use of aspirin; Z79.899 Other long term (current) drug therapy; Z20.822 Contact with and (suspected) exposure to COVID-19
CPT/HCPCS: 36415; 71045; 80048; 80061; 80076; 83735; 83880; 84439; 84443; 84484; 85025; 85379; 85610; 85730; 87811; 93005; 93306; 93971; 96372; 99285; G0378; J1650

== ENCOUNTER 2022-07-30 11:56 | Day surgery (SDC) | payer OTHER ==
[2022-07-29 11:20] LABS: Absolute Lymphocytes (CBC) 1.7 K/uL (0.7-4.9); Hematocrit 39.3 % (36.0-45.0); Lymphocytes % 27.2 % (15.3-44.8); MPV 9.1 fL (7.6-11.3); Protime INR 1.24; RBC Red Blood Cell Count 4.27 M/uL (3.86-4.86)
[2022-07-29 11:22] LABS: SARS-CoV-2 Antigen Rapid Res Negative (Negative)
--- NOTE | 2022-07-29 12:47 | EKG ---
Test Date: 2022-07-29 Test Time: 10:20:18 Moving Picture Operator: DEE MEASUREMENT RESULTS: Intervals: Rate: 98 WY: QRSD: 88 QT: 390 QTc: 497 Midnight: P: WY: QRS: 62 T: 52 INTERPRETIVE STATEMENTS: Atrial fibrillation with premature ventricular or aberrantly conducted complexes Prolonged QT Abnormal ECG Compared to ECG 07/14/2022 16:18:21 Ventricular premature complex(es) now present Prolonged QT interval now present Electronically Signed On 07-29-22 12:46:30 CDT by Edwin Walsh
[~2022-07-30 11:56] MED LIST: ATROPINE SULF 1 MG/10 ML SYR IV ONE; FENTANYL CITR 100 MCG/2 ML ONE; MIDAZOLAM HCL 2 MG/2 ML INJ ONE; PHENOL 1.4% ORAL SPRAY 180ML ONE
[2022-07-30] MEDS ORDERED: NA CHLORIDE 0.9% 500 ML ONE (12:07)
[2022-07-30] MEDS ORDERED: MIDAZOLAM HCL 2 MG/2 ML INJ ONE (12:23)
[2022-07-30] MEDS ORDERED: METOPROLOL TARTRATE 5 MG/5 ML INJ IV ONE (12:23)
[2022-07-30] MEDS ORDERED: HYDRALAZINE HCL 20 MG/ML VIAL ONE (12:23)
[2022-07-30] MEDS ORDERED: FLUMAZENIL 0.1 MG/ML (5 mL VIAL) IV ONE (12:24)
[2022-07-30 14:04] VITALS: BP 152/79; O2SAT 100
--- NOTE | 2022-07-30 14:49 | OP ---
Date of Procedure: 07/30/2022 Surgeon: SOLEDAD CARRASCO Procedures Performed: 1.Transesophageal echocardiogram. 2.Synchronized electrical cardioversion. Indication: Atrial fibrillation. Description Of Procedure: After risks, benefits, alternatives were explained, the patient agreed to the procedure and signed informed consent. The patient was brought into the OR and after proper time -out, we used local anesthetic to numb the back of the throat and then gave her 4 mg of Versed and 50 mg of fentanyl and then inserted the JORGE LUIS probe and performed a JORGE LUIS that did not reveal any thrombus in the left atrium or left atrial appendage. Then, JORGE LUIS probe was removed. The patient was sedated a nd then a synchronized 200 joule cardioversion was done successfully converting into sinus rhythm. A fter that, the patient woke up and moving all extremities and no complications. Conclusion: Successful JORGE LUIS-guided cardioversion into sinus rhythm. /HOOD Voice ID: [id number] Report ID: [id number]
--- NOTE | 2022-07-31 07:05 | ECHO ---
HEIGHT: 5 ft 4 in WEIGHT: 240 lb 0 oz DATE OF STUDY: 07/30/[address]: George Mcclellan 2-DIMENSIONAL: YES M.MODE: YES DOPPLER: YES COLOR FLOW: YES TDS: NO PORTABLE: YES DEFINITY: NO BUBBLE STUDY: NO DIAGNOSIS: CARDIOVERSION CARDIAC HISTORY: CATHERIZATION: NO SURGERY: NO PROSTHETIC VALVE: NO PACEMAKER: NO MEASUREMENTS (cm) DIASTOLIC (NORMALS) SYSTOLIC (NORMALS) IVSd (0.6-1.2) LA Diam (1.9-4.0) LVEF 55-60% LVIDd (3.5-5.7) LVIDs (2.0-3.5) %FS % LVPWd (0.6-1.2) Ao Diam (2.0-3.7) 2 DIMENSIONAL ASSESSMENT: RIGHT ATRIUM: NORMAL LEFT ATRIUM: NORMAL RIGHT VENTRICLE: NORMAL LEFT VENTRICLE: NORMAL TRICUSPID VALVE: NORMAL MITRAL VALVE: NORMAL PULMONIC VALVE: NORMAL AORTIC VALVE: NORMAL PERICARDIAL EFFUSION: NONE AORTIC ROOT: NORMAL LEFT VENTRICULAR WALL MOTION: NORMAL. DOPPLER/COLOR FLOW: MILD AORTIC INSUFFICIENCY. COMMENTS: NORMAL LEFT VENTRICULAR EJECTION FRACTION 55-60%. ATRIAL FIBRILLATION. NO THROMBUS IS SEE IN THE LEFT ATRIAL APPENDAGE. MILD AORTIC INSUFFICIENCY. TECHNOLOGIST: DICKSON BUCK
--- NOTE | 2022-08-03 14:19 | EKG ---
Test Date: 2022-07-30 Test Time: 12:52:34 Business Analytics Faculty Member: TW MEASUREMENT RESULTS: Intervals: Rate: 63 VT: 168 QRSD: 96 QT: 438 QTc: 448 Carmi: P: 67 VT: 168 QRS: 68 T: 18 INTERPRETIVE STATEMENTS: Normal sinus rhythm Normal ECG Compared to ECG 07/29/2022 10:20:18 Atrial fibrillation no longer present Ventricular premature complex(es) no longer present Prolonged QT interval no longer present Electronically Signed On 08-03-22 14:15:08 CDT by George Mcclellan
== END 2022-07-30 13:47 | disposition home or self-care (01) ==
LOC: CCL 11:56
PROVIDERS: ATTEND Internal Medicine
DX: I48.91 Unspecified atrial fibrillation (principal); I11.0 Hypertensive heart disease with heart failure; I50.30 Unspecified diastolic (congestive) heart failure; Z79.01 Long term (current) use of anticoagulants; Z79.82 Long term (current) use of aspirin; Z79.899 Other long term (current) drug therapy; Z88.0 Allergy status to penicillin; Z88.2 Allergy status to sulfonamides; Z20.822 Contact with and (suspected) exposure to COVID-19
CPT/HCPCS: 93005 ×2; 93312; 93306; 85025; 36415; 85610; 85730; 92960; 87811; J2250 ×2; J3010; J7040; J0360

== ENCOUNTER 2024-07-23 09:54 | Inpatient (IN) | payer OTHER ==
--- OUTSIDE RECORDS SUMMARY | 2024-07-23 09:57 | XMS REPORT | Continuity of Care Document ---
Author Name Unknown Address [address] [facility] [place] [address] [facility] thconnect Address [address] [facility] [address] [place] [address] Care Team Providers Care Tub Rider Name Role Phone DEREK CESAR Primary Care Physician Harika Jackson Attending Clinician Unavailable Rocco Noguera NP Attending Clinician ROCCO NOGUERA Attending Clinician Unavaila ble Payers Payer Name Policy Type Policy Number Effective Date Expirati on Date Source Problems Condition Name Condition Details Condition Category Status Onset Date Resolution Date Last Treatment Date Treating Clinician Comments Source Colon cancer screening Colon cancer screening Disease Active 04-22 00:00: 00 [facility] Screening for malignant neoplasm of the cervix Screening for malignant neoplasm of the cervix Disease Active 04-22 00:00: 00 [facility] BMI 40.0-44.9, adult BMI 40.0-44.9, adult Disease Active 04-22 00:00: 00 [facility] Allergies, Adverse Reactions, Alerts Allergy Name Allergy Type Status Severity Reaction(s) Onset Date Inactive Date Treating Clinician Comments Source Penicill in Propensi ty to adverse reaction s Active Unknown - See comments 04-21 00:00: 00 [facility] Sulfur Propensi ty to adverse reaction s Active Unknown - See comments 04-21 00:00: 00 PRODUCTS [facility] PENICILL IN DRUG INGREDI Active Unknown-Cmnt 04-21 00:00: 00 [facility] SULFUR DRUG INGREDI Active Unknown-Cmnt 04-21 00:00: 00 [facility] Social History Social Habit Start Date Stop Date Quantity Comments Source Alcohol intake 2022-04-22 00:00:00 2022-04-22 00:00:00 1.43 /d [facility] Tobacco use and exposure 2022-04-21 00:00:00 2022-04-21 00:00:00 Never used [facility] Exposure to SARS-CoV-2 (event) 2022-04-10 00:00:00 2022-04-20 14:49:00 Not sure [facility] History of tobacco use 1989-11-08 00:00:00 Smoker [facility] Sex Ass[birth year] At 1965 00:00:00 1965 00:00:00 [facility] Smoking Status Start Date Stop Date Source Former smoker 2022-04-21 00:00:00 2022-04-21 00:00:00 [facility] Medications Ordered Medication Name Filled Medication Name Start Date Stop Date Current Medication? Ordering Clinician Indication Dosage Frequency Signature (SIG) Comments Components Source candesartan -hydrochlor othiazide 16-12.5 mg per tablet 5-25 00:00: 00 Yes 1{tbl} Take 1 tablet by mouth every morning. [facility] pregabalin 50 mg capsule 5-03 00:00: 00 Yes TAKE ONE (1) CAPSULE(S) BY MOUTH TWICE A DAY. [facility] FLUoxetine 20 mg capsule 4-29 00:00: 00 Yes TAKE ONE (1) CAPSULE(S) BY MOUTH EVERY MORNING. [facility] Vital Signs Vital Name Observation Time Observation Value Comments S ourkassandra Systolic blood pressure 2022-04-21 19:49:00 126 mm[Hg] [facility] Diastolic blood pressure 2022-04-21 19:49:00 78 mm[Hg] [facility] Heart rate 2022-04-21 19:49:00 78 /min [facility] Body temperature 2022-04-21 19:49:00 36.5 Kelley [facility] Body height 2022-04-21 19:49:00 162.6 cm [facility] Body weight 2022-04-21 19:49:00 109.272 kg [facility] BMI 2022-04-21 19:49:00 41.35 kg/m2 [facility] Procedures Procedure Date / Time Performed Performing Clinicia n Source PAP SMEAR-LIQUID BASED-CP 2022-04-21 20:04:00 Rocco Noguera [facility] Encounters Start Date/Time End Date/Time Encounter Type Admission Type Attending Clinicians Care Facility Care Department Encounter ID Source 2021-12-03 14:37:05 Outpatient Harika Campbell [facility] [id number] [place] 14:30:00 2022-04-21 15:06:08 Office Visit Rocco Noguera [facility] [id number] [facility] 2022-04-21 14:30:00 2022-04-21 15:06:08 Outpatient R ROCCO NOGUERA [facility] [id number] [facility] 2022-04-21 14:30:00 2022-04-21 15:06:08 Outpatient R ROCCO NOGUERA [facility] [id number] [facility]
[2024-07-23 10:27] LABS: Absolute Basophils 0.1 K/uL (0-0.5); Absolute Eosinophils 0.2 K/uL (0-0.5); Absolute Lymphocytes (CBC) 1.7 K/uL (0.7-4.9); Absolute Monocytes 0.5 K/uL (0.1-1.3); Absolute Neutrophil 3.6 K/uL (1.8-8.0); Basophils % 1.1 % (0-1.3); Eosinophils % 2.5 % (0-4.4); Hematocrit 41.4 % (36.0-45.0); Hemoglobin 13.3 g/dL (12.0-15.0); Lymphocytes % 28.8 % (15.3-44.8); MCH 29.7 pg (27.0-35.0); MCHC 32.1 g/dL (32.0-36.0); MCV 92.5 fL (80-100); MPV 8.9 fL (7.6-11.3); Monocytes % 8.7 % (3.3-12.3); Neutrophils % 58.9 % (41.7-73.7); Platelets 249 thou/uL (152-406); RBC Red Blood Cell Count 4.47 M/uL (3.86-4.86); Red Cell Distribution Width 13.7 % (12.1-15.2)
[2024-07-23 10:38] LABS: PT Prothrombin Time 12.6 SECONDS (9.4-12.5); Protime INR 1.13
[2024-07-23 10:45] LABS: Anion Gap 6.9 mEq/L (5.0-15.0); Magnesium 2.1 mg/dL (1.6-2.4); Potassium 3.9 mEq/L (3.5-5.1); Troponin High Sensitivity 4.7 pg/mL (<58.9)
[2024-07-23] MEDS ORDERED: MAGNESIUM OXIDE 400 MG TAB ONE (10:53)
[2024-07-23] MEDS ORDERED: METOPROLOL TAR 50 MG TAB ONE (10:53)
--- NOTE | 2024-07-23 11:04 | RAD REPORT ---
EXAMINATION: ONE VIEW CHEST XR CLINICAL INDICATION: Female, 59 years old. [facility] MAIN DYSPNEA Bed Name: 6 TECHNIQUE: 1 View, AP supine, X-ray of the chest was performed. [id number]. COMPARISON: No prior exam. FINDINGS: Lungs and pleura: Clear lungs. No effusion. Heart and mediastinum: Normal heart size. Unremarkable mediastinal contours. Osseous structures: No acute abnormality. Tubes/lines: None Other: None. IMPRESSION: No acute intrathoracic abnormality.
--- NOTE | 2024-07-23 11:52 | ER ---
Nurse's Notes [facility] Name: Telma Velez Age: 59 yrs Sex: Female : 1965 Arrival Date: 07/23/2024 Time: 09:54 Bed 6 Private MD: Diagnosis: Persistent atrial fibrillation-with rapid ventricular rate;Dyspnea, unspecified Presentation: 07/23 10:06 Chief complaint: Intermittent palpitations x 2 weeks, SOB and dizziness x 2-3 days. hb Coronavirus screen: At this time, the client does not indicate any symptoms associated with coronavirus-19. Ebola Screen: No symptoms or risks identified at this time. Initial Sepsis Screen: Does the patient meet any 2 criteria? No. Patient's initial sepsis screen is negative. Does the patient have a suspected source of infection? No. Patient's initial sepsis screen is negative. Risk Assessment: Do you want to hurt yourself or someone else? Patient reports no desire to harm self or others. Onset of symptoms was July 09, 2024. 10:06 Method Of Arrival: Ambulatory hb 10:06 Acuity: DAISHA 3 hb Historical: - Allergies: 10:08 PENICILLINS; hb 10:08 Sulfa (Sulfonamide Antibiotics); hb - Home Meds: 10:08 Metoprolol Tartrate Oral [Active]; Lyrica Oral [Active]; Cymbalta oral [Active]; hb Eliquis oral [Active]; - PMHx: 10:08 Depression; Fibromyalgia; Atrial fibrillation; hb - Immunization history:: Adult Immunizations up to date. - Infectious Disease History:: Denies. - Social history:: Smoking status: Patient denies any tobacco usage or history of. - Family history:: not pertinent. - Hospitalizations: : No recent hospitalization is reported. Screenin:23 [facility] ED Fall Risk Assessment (Adult) History of falling in the last 3 months, aa5 including since admission No falls in past 3 months (0 pts) Confusion or Disorientation No (0 pts) Intoxicated or Sedated No (0 pts) Impaired Gait No (0 pts) Mobility Assist Device Used No (0 pt) Altered Elimination No (0 pt) Score/Fall Risk Level 0 - 2 = Low Risk Oriented to surroundings, Maintained a safe environment, Educated pt \T\ family on fall prevention, incl call for assistance when getting out of bed. Abuse screen: Denies threats or abuse. Nutritional screening: No deficits noted. Tuberculosis screening: No symptoms or risk factors identified. Assessment: 10:00 General: Appears comfortable, Behavior is calm, cooperative. Pain: Complains of pain in aa5 right side of forehead Pain does not radiate. Quality of pain is described as aching, Is intermittent. Neuro: Level of Consciousness is awake, alert, obeys commands, Oriented to person, place, time, situation, Moves all extremities. Speech is normal, Facial symmetry appears normal, Reports headache frontal area. Cardiovascular: Reports palpitations, Heart tones S1 S2 present Rhythm is atrial fibrillation. Respiratory: Reports shortness of breath at rest Airway is patent Respiratory effort is even, unlabored, Respiratory pattern is regular, symmetrical. GI: No signs and/or symptoms were reported involving the gastrointestinal system. : No signs and/or symptoms were reported regarding the genitourinary system. EENT: No signs and/or symptoms were reported regarding the EENT system. Derm: Skin is pink, warm \T\ dry. Musculoskeletal: Range of motion: intact in all extremities. 11:02 Reassessment: Patient is alert, oriented x 3, equal unlabored respirations, skin aa5 warm/dry/pink. 13:15 Reassessment: Patient is alert, oriented x 3, equal unlabored respirations, skin aa5 warm/dry/pink. 14:15 Reassessment: Patient is alert, oriented x 3, equal unlabored respirations, skin aa5 warm/dry/pink. Vital Signs: 10:06 BP 157 / 110; Pulse 102; Resp 15; Temp 98(O); Pulse Ox 98% on R/A; Pain 0/10; hb 11:00 BP 140 / 106; Pulse 101; Resp 18 S; Pulse Ox 97% on R/A; aa5 13:15 BP 132 / 96; Pulse 88; Resp 16 S; Pulse Ox 97% on R/A; aa5 10:06 Pain Scale: Adult hb ED Course: 09:58 Patient arrived in ED. mg5 09:58 Brendon Katz MD is Attending Physician. rn 10:07 Yuli Bolton, SETH is Primary Nurse. aa5 10:08 Triage completed. hb 10:10 Arm band placed on. hb 10:10 Patient has correct armband on for positive identification. Placed in gown. Bed in low aa5 position. Call light in reach. Side rails up X2. Client placed on continuous cardiac and pulse oximetry monitoring. NIBP monitoring applied. court monitor on. Pulse ox on. NIBP on. 10:18 Initial lab(s) drawn, by me, sent to lab. Inserted saline lock: 20 gauge in right aa5 antecubital area, using aseptic technique. Blood collected. Flushed with 10 mL NS. 10:53 XRAY Chest (1 view) In Process Unspecified. EDMS 11:51 Richie Katz MD is Hospitalizing Provider. rn 14:15 No provider procedures requiring assistance completed. Patient admitted, IV remains in aa5 place. Administered Medications: 11:02 Drug: Metoprolol PO 50 mg PO once Route: PO; aa5 12:12 Follow up: Response: No adverse reaction aa5 11:02 Drug: Magnesium Oxide PO 400 mg PO once; administer with meals Route: PO; aa5 12:12 Follow up: Response: No adverse reaction aa5 12:12 Drug: Sotalol PO 80 mg PO once Route: PO; bp 13:15 Follow up: Response: No adverse reaction aa5 Medication: 10:25 VIS not applicable for this client. aa5 Outcome: 11:51 Decision to Hospitalize by Provider. rn 14:15 Admitted to Tele accompanied by tech, family with patient, via wheelchair, with chart, aa5 Other Report was faxed. 14:15 Condition: stable 14:15 Instructed on the need for admit, Demonstrated understanding of instructions, 14:19 Patient left the ED. aa5 Signatures: Dispatcher [employer] EDMT Brendon Katz MD MD rn Calderon, Audri RN RN aa5 Juany Winkler RN RN hb Peltier, Brian, RN RN bp Gardner, [place] mg5
--- NOTE | 2024-07-23 11:52 | EDPHYS ---
Physician Documentation [facility] Name: Telma Velez Age: 59 yrs Sex: Female : 1965 Arrival Date: 07/23/2024 Time: 09:54 Bed 6 Private MD: ED Physician Brendon Katz HPI: 07/23 10:13 This 59 yrs old Female presents to ER via Ambulatory with complaints of Palpitations, rn Dizziness. 10:13 The patient presents with a history of irregular heart beat, heart racing. Onset: The rn symptoms/episode began/occurred 3 week(s) ago. Duration: The patient or guardian reports multiple episodes, that are intermittent. Modifying factors: The symptoms are aggravated by light activity, sitting up, The symptoms are alleviated by rest. Associated signs and symptoms: Pertinent positives: chest pain, lightheadedness, SOB, Pertinent negatives: fever. Severity of symptoms: At their worst the symptoms were moderate in the emergency department the symptoms are unchanged. The patient has experienced similar episodes in the past. Patient reports palpitations with dizziness for 2 to 3 weeks. States just diagnosed with atrial fibrillation, seen by Dr. Ramachandran, put on Eliquis and takes metoprolol. Told eventually the plan was sotalol and/or electrical cardioversion. Patient reports the last few days symptoms seem to have gotten worse, associated with intermittent chest pain and dyspnea with lightheadedness.. Historical: - Allergies: 10:08 PENICILLINS; hb 10:08 Sulfa (Sulfonamide Antibiotics); hb - Home Meds: 10:08 Metoprolol Tartrate Oral [Active]; Lyrica Oral [Active]; Cymbalta oral [Active]; hb Eliquis oral [Active]; - PMHx: 10:08 Depression; Fibromyalgia; Atrial fibrillation; hb - Immunization history:: Adult Immunizations up to date. - Infectious Disease History:: Denies. - Social history:: Smoking status: Patient denies any tobacco usage or history of. - Family history:: not pertinent. - Hospitalizations: : No recent hospitalization is reported. ROS: 10:13 Constitutional: Negative for fever, chills, and weight loss, Cardiovascular: Positive rn for chest pain and palpitations, positive for lower extremity edema Respiratory: Positive for shortness of breath and dyspnea with exertion Abdomen/GI: Negative for abdominal pain, nausea, vomiting, diarrhea, and constipation, Back: Negative for injury and pain, MS/Extremity: Positive for lower extremity edema Skin: Negative for injury, rash, and discoloration, Neuro: Positive for dizziness and lightheadedness Exam: 10:13 Constitutional: This is a well developed, well nourished patient who is awake, alert, rn and in no acute distress. Cardiovascular: Tachycardic, irregularly irregular Respiratory: No increased work of breathing, no retractions or nasal flaring. MS/ Extremity: Pulses equal, no cyanosis. Neurovascular intact. Full, normal range of motion. Equal circumference. Nonpitting edema bilateral lower extremities Neuro: Awake and alert, GCS 15 10:25 ECG was reviewed by the Attending Physician. rn Vital Signs: 10:06 BP 157 / 110; Pulse 102; Resp 15; Temp 98(O); Pulse Ox 98% on R/A; Pain 0/10; hb 11:00 BP 140 / 106; Pulse 101; Resp 18 S; Pulse Ox 97% on R/A; aa5 13:15 BP 132 / 96; Pulse 88; Resp 16 S; Pulse Ox 97% on R/A; aa5 10:06 Pain Scale: Adult hb MDM: 09:58 Patient medically screened. rn 11:50 Differential diagnosis: arrythmia, dehydration, stress disorder, A-fib with RVR, rn pulmonary edema, congestive heart failure. Data reviewed: vital signs, nurses notes, lab test result(s), EKG, radiologic studies, plain films, and as a result, I will admit patient. Consideration of Admission/Observation Patient was admitted/placed on observation. Escalation of care including admission/observation considered. Counseling: I had a detailed discussion with the patient and/or guardian regarding the historical points, exam findings, and any diagnostic results supporting the discharge/admit diagnosis, lab results, radiology results, the need for further work-up and treatment in the hospital. Response to treatment: the patient's symptoms have mildly improved after treatment, and as a result, I will admit patient. ED course: Patient well-controlled with additional metoprolol here. Heart rate 90s to 110. Elevated BNP but no pulmonary edema on x-ray likely secondary to patient's increase in torsemide dose recently. Patient reports worsening dyspnea on exertion and orthopnea in the last 4 days, will admit to hospitalist service for further care and cardiology consultation.. 07/23 10:13 Order name: Basic Metabolic Panel; Complete Time: : rn 07/23 10:13 Order name: CBC with Diff; Complete Time: rn 07/23 10:13 Order name: Magnesium; Complete Time: rn 07/23 10:13 Order name: NT PRO-BNP; Complete Time: rn 07/23 10:13 Order name: PT-INR; Complete Time: rn 07/23 10:13 Order name: Troponin HS; Complete Time: rn 07/23 10:13 Order name: XRAY Chest (1 view); Complete Time: 11: rn 07/23 10:13 Order name: EKG; Complete Time: rn 07/23 10:13 Order name: Cardiac monitoring; Complete Time: rn 07/23 10:13 Order name: EKG - Nurse/Tech; Complete Time: rn 07/23 10:13 Order name: IV Saline Lock; Complete Time: rn 07/23 10:13 Order name: Labs collected and sent; Complete Time: rn 07/23 10:13 Order name: O2 Per Protocol; Complete Time: rn 07/23 10:13 Order name: O2 Sat Monitoring; Complete Time: : rn EC:25 Rate is 100 beats/min. Rhythm is irregularly irregular. QRS [place] is Normal. QRS rn interval is normal. QT interval is normal. No Q waves. T waves are Normal. No ST changes noted. Clinical impression: Atrial Fibrillation. Interpreted by me. Administered Medications: 11:02 Drug: Metoprolol PO 50 mg PO once Route: PO; aa5 12:12 Follow up: Response: No adverse reaction aa5 11:02 Drug: Magnesium Oxide PO 400 mg PO once; administer with meals Route: PO; aa5 12:12 Follow up: Response: No adverse reaction aa5 12:12 Drug: Sotalol PO 80 mg PO once Route: PO; bp 13:15 Follow up: Response: No adverse reaction aa5 Disposition Summary: 07/23/24 11:51 Hospitalization Ordered Notes: Hospitalization Status: Observation rn Provider: Richie Katz [facility] rn Condition: Stable rn Problem: an ongoing problem rn Symptoms: have improved rn Bed/Room Type: Standard rn Room Assignment: 214(07/23/24 13:42) eb Diagnosis - Persistent atrial fibrillation - with rapid ventricular rate rn - Dyspnea, unspecified rn Forms: - Medication Reconciliation Form rn - SBAR form rn - Leadership Thank You Letter rn Signatures: Dispatcher [employer] EDMS Brendon Katz MD MD rn Calderon, Audri, RN RN aa5 Zack Martinez, PARTY DIRECTOR-C PARTY DIRECTOR-Cla1 Juany Winkler RN RN Dominic Archuleta, RN RN Fifi Brody Corrections: (The following items were deleted from the chart) 10:13 10:13 BASIC METABOLIC PANEL+C.LAB.BRZ ordered. EDMS EDMS 10:13 10:13 CBC+H.LAB.BRZ ordered. EDMS EDMS 10:13 10:13 MAGNESIUM+C.LAB.BRZ ordered. EDMS EDMS 10:13 10:13 PROBNP+C.LAB.BRZ ordered. EDMS EDMS 10:13 10:13 PROTIME (+INR)+COAG.LAB.BRZ ordered. EDMS EDMS 10:13 10:13 Troponin High Sensitivity+C.LAB.BRZ ordered. EDMS EDMS 13:42 11:51 rn eb
[2024-07-23] MEDS ORDERED: SOTALOL HCL 80 MG TAB ONE (12:10)
[2024-07-23 14:34] VITALS: BMI 36.0
--- NOTE | 2024-07-23 15:30 | P.HP ---
Certification for Inpatient Patient admitted to: Observation With expected LOS: <2 Midnights Patient will require the following post-hospital care: None Practitioner: I am a practitioner with admitting privileges, knowledge of patient current condition, hospital course, and medical plan of care. Services: Services provided to patient in accordance with Admission requirements found in Title 42 Section 412.3 of the Code of Federal Regulations Patient History Date of Service: 07/23/24 Reason for admission: A-fib RVR History of Present Illness: 59-year-old female with history of atrial fibrillation, hypertension presents emergency department chief complaint of dizziness, palpitations. She reports that she was previously diagnosed with atrial fibrillation about 3 years ago and was started on sotalol as well as having a JORGE LUIS cardioversion, since then she had been in sinus rhythm as far she knows but the past few weeks has been dealing with atrial fibrillation again. She is seen by her environmental services associate who recommended she continue her metoprolol and take Eliquis but her symptoms continue to get worse with dizziness and palpitations. She presented to the emergency department today with a heart rate around 110 and symptomatic, ED provider wishes to admit under observation. Case was discussed with cardiology who recommends initiating sotalol. Allergies Penicillins Allergy (Severe, Verified 07/29/22 10:04) Anaphylaxis Sulfa (Sulfonamide Antibioti Allergy (Severe, Uncoded 07/29/22 10:04) Rash Home Medications: Fluoxetine HCl [Prozac] 20 mg PO DAILY 07/15/22 Pregabalin [Lyrica*] 50 mg PO BID 07/15/22 Apixaban [Eliquis] 5 mg PO BID #60 tab 07/16/22 Losartan Potassium [Cozaar] 25 mg PO DAILY 07/23/24 Metoprolol Tartrate [Lopressor*] 50 mg PO BID 6AM 6PM 07/23/24 Torsemide [Demadex] 20 mg PO DAILY 07/23/24 - Past Medical/Surgical History Has patient received pneumonia vaccine in the past: No Diabetic: No -: Hypertension -: Fibromyalgia -: Depression -: A-fib -: None Psychosocial/ Personal History: Patient is . - Family History Father -: Heart disease Mother -: Heart disease Brother -: Other (see notes) - Social History Smoking Status: Never smoker Alcohol use: Yes CD- Drugs: No Caffeine use: Yes Place of Residence: Home Review of Systems 10-point ROS is otherwise unremarkable Cardiovascular: Palpitations Physical Examination - Vital Signs Temperature: 97.4 F Blood Pressure: 128/74 Pulse: 95 Respirations: 17 Pulse Ox (%): 93 - Physical Exam General: Alert, In no apparent distress, Oriented x3 HEENT: Atraumatic, PERRLA, Mucous membr. moist/pink, EOMI Neck: Supple, 2+ carotid pulse no bruit, No LAD Respiratory: Clear to auscultation bilaterally, Normal air movement Cardiovascular: Normal S1 S2, Irregular heart rate/rhythm Gastrointestinal: Normal bowel sounds, No tenderness Musculoskeletal: No tenderness Integumentary: No rashes Neurological: Normal gait, Normal speech, Normal strength at 5/5 x4 extr, Normal tone, Normal affect Lymphatics: No axilla or inguinal lymphadenopathy - Studies Laboratory Data (last 24 hrs) 07/23/24 07/23/24 07/23/24 10:18 10:18 10:18 WBC 6.10 Hgb 13.3 Hct 41.4 Plt Count 249 PT 12.6 H INR 1.13 Sodium 139 Potassium 3.9 BUN 16 Creatinine 0.74 Glucose 102 Magnesium 2.1 Assessment and Plan - Plan Assessment: Atrial fibrillation with rapid ventricular responseon chronic anticoagulation Hypertension Plan: Atrial fibrillation with rapid ventricular responseon chronic anticoagulation Cardiology recommend starting sotalol, first dose given today around noon QTc 469 NPO after midnight in anticipation of possible JORGE LUIS cardioversion TTE ordered Discontinue metoprolol now Appreciate further input from cardiology Hypertension Continue home indications DVT PPX: Continue Eliquis Code status: Full code Discharge Plan: Home Plan to discharge in: 24 Hours - Advance Directives Does patient have a Living Will: No Does patient have a Durable POA for Healthcare: No - Code Status/Comfort Care Code Status Assessed: Yes (Full code) Critical Care: No Time Spent Managing Pts Care (In Minutes): 61
[2024-07-23] MEDS: SOTALOL HCL 80 MG TAB PO SCH (17:20)
[2024-07-23] MEDS: MECLIZINE HCL 12.5 MG TAB PO ONE (17:35)
[2024-07-23] MEDS: PREGABALIN 50 MG CAP PO SCH (20:37)
[2024-07-23] MEDS: APIXABAN 5 MG TABLET PO SCH (20:37)
[2024-07-24 05:12] LABS: Absolute Basophils 0.1 K/uL (0-0.5); Absolute Eosinophils 0.2 K/uL (0-0.5); Absolute Lymphocytes (CBC) 1.7 K/uL (0.7-4.9); Absolute Monocytes 0.4 K/uL (0.1-1.3); Absolute Neutrophil 2.7 K/uL (1.8-8.0); Basophils % 1.1 % (0-1.3); Eosinophils % 3.9 % (0-4.4); Hematocrit 39.1 % (36.0-45.0); Hemoglobin 12.6 g/dL (12.0-15.0); Lymphocytes % 33.5 % (15.3-44.8); MCH 29.9 pg (27.0-35.0); MCHC 32.2 g/dL (32.0-36.0); MPV 8.8 fL (7.6-11.3); Monocytes % 8.1 % (3.3-12.3); Neutrophils % 53.4 % (41.7-73.7); Platelets 209 thou/uL (152-406); RBC Red Blood Cell Count 4.21 M/uL (3.86-4.86); Red Cell Distribution Width 13.6 % (12.1-15.2)
[2024-07-24 05:40] LABS: Albumin 3.2 g/dL (3.4-5.0); Albumin/Globulin Ratio 1.1 (1.1-1.8); Anion Gap 5.9 mEq/L (5.0-15.0); Bilirubin Total 0.8 mg/dL (0.2-1.0); Potassium 3.9 mEq/L (3.5-5.1); Protein, Total 6.2 g/dL (6.4-8.2); Troponin High Sensitivity 3.6 pg/mL (<58.9)
[2024-07-24] MEDS: TORSEMIDE 20 MG TAB PO SCH (08:24)
[2024-07-24] MEDS: LOSARTAN POTASSIUM 50 MG TABLET PO SCH (08:24)
[2024-07-24] MEDS: FLUOXETINE 20 MG CAP PO SCH (08:24)
[2024-07-24] MEDS: KCL 20 MEQ/100 mL IVPB 20 MEQ/100 ML BAG IV SCH (08:28)
[2024-07-24] MEDS ORDERED: HOME MED 1 EA UNK (Losartan Potassium [Cozaar] 25 MG Tablet) PO SCH (09:00)
[2024-07-24] MEDS ORDERED: NA CHLORIDE 0.9% 500 ML ONE (10:54)
--- NOTE | 2024-07-24 11:16 | P.CNS ---
Date of Consult: 07/24/24 Chief Complaint: A-fib RVR History of Present Illness: Patient with PMH of atrial fibrillation, diastolic heart failure, presented with worsening dizziness and palpitations, no chest pain, no SOB, no syncope. Allergies Penicillins Allergy (Severe, Verified 07/29/22 10:04) Anaphylaxis Sulfa (Sulfonamide Antibioti Allergy (Severe, Uncoded 07/29/22 10:04) Rash Home medications list reviewed: Yes Home Medications: Fluoxetine HCl [Prozac] 20 mg PO DAILY 07/15/22 Pregabalin [Lyrica*] 50 mg PO BID 07/15/22 Apixaban [Eliquis] 5 mg PO BID #60 tab 07/16/22 Losartan Potassium [Cozaar] 25 mg PO DAILY 07/23/24 Metoprolol Tartrate [Lopressor*] 50 mg PO BID 6AM 6PM 07/23/24 Torsemide [Demadex] 20 mg PO DAILY 07/23/24 - Past Medical/Surgical History Diabetic: No -: Hypertension -: Fibromyalgia -: Depression -: A-fib -: None Psychosocial/ Personal History: Patient is . - Family History Father Medical History: Heart disease Mother Medical History: Heart disease Brother Medical History: Other (see notes) - Social History Alcohol use: Yes CD- Drugs: No Caffeine use: Yes Place of Residence: Home Review of Systems 10-point ROS is otherwise unremarkable Physical Examination Temp Pulse Resp BP Pulse Ox 97.5 F 96 H 20 147/94 H 93 07/24/24 08:00 07/24/24 08:00 07/24/24 08:00 07/24/24 08:00 07/24/24 08:00 General: Alert, In no apparent distress HEENT: Atraumatic, PERRLA, Mucous membr. moist/pink, EOMI, Sclerae nonicteric Neck: Supple, 2+ carotid pulse no bruit, No LAD, Without JVD or thyroid abnormality Respiratory: Clear to auscultation bilaterally, Normal air movement Cardiovascular: Irregular heart rate/rhythm Gastrointestinal: Normal bowel sounds, No tenderness Musculoskeletal: No tenderness Integumentary: No rashes Neurological: Normal gait, Normal speech, Normal tone, Normal affect Lymphatics: No axilla or inguinal lymphadenopathy - Problems (1) Atrial fibrillation Current Visit: Yes Status: Acute Plan: started patient on Sotalol 80 mg po BID NPO for JORGE LUIS DCCV Continue Eliquis 5 mg po BID (2) Chronic diastolic heart failure Current Visit: Yes Status: Acute Plan: continue patient home medications
[2024-07-24] MEDS ORDERED: ATROPINE SULF 1 MG/10 ML SYR IV ONE (11:21)
[2024-07-24] MEDS ORDERED: METOPROLOL TARTRATE 5 MG/5 ML INJ IV ONE (11:22)
[2024-07-24] MEDS ORDERED: propofoL 200 MG/20 ML VIAL IV ONE ×2 (11:25→11:34)
[2024-07-24] MEDS ORDERED: LIDOCAINE 1% MPF 5 ML VIAL ONE (11:27)
[2024-07-24 12:10] VITALS: O2SAT 98
--- NOTE | 2024-07-24 12:50 | EKG ---
Test Date: 2024-07-23 Test Time: 10:16:14 Home Health Care Physician: JUDE MEASUREMENT RESULTS: Intervals: Rate: 100 AR: QRSD: 90 QT: 364 QTc: 469 [place]: P: AR: QRS: 51 T: 47 INTERPRETIVE STATEMENTS: Atrial fibrillation Abnormal ECG Compared to ECG 07/30/2022 12:52:34 Sinus rhythm no longer present Electronically Signed On 07-24-24 12:47:11 CDT by George Mcclellan
--- NOTE | 2024-07-24 13:09 | P.PN ---
Date of Service: 07/24/24 Subjective: Still having some vertigo No other acute events overnight Was still in A-fib this morning ROS: 10 point ROS as noted above, otherwise negative Physical exam GEN: Alert, oriented, NAD HEENT: Normal conjunctiva, sclera anicteric CV: Regular rate and rhythm, no edema Pulm: Nonlabored respirations on room air ABD: Soft, nontender, nondistended MSK: No joint tenderness Integumentary: No rashes Neuro: Normal speech, normal affect Vitals reviewed Assessment: Atrial fibrillation with rapid ventricular responseon chronic anticoagulation Hypertension Plan: Atrial fibrillation with rapid ventricular responseon chronic anticoagulation Cardiology recommend starting sotalol, will repeat EKG tonight around 1900 S/P JORGE LUIS cardioversion which was successful, now sinus bradycardia rate 50-60 Possible discharge later this evening after repeat EKG Appreciate further input from cardiology Hypertension Continue home indications DVT PPX: Continue Eliquis Code status: Full code Discharge Plan: Home Plan to discharge in: 24 Hours Time Spent Managing Pts Care (In Minutes): 35
--- NOTE | 2024-07-24 13:37 | ECHO ---
HEIGHT: 5 ft 4 in WEIGHT: 210 lb 0 oz DATE OF STUDY: 07/24/[address]: Zack Martinez NP 2-DIMENSIONAL: YES M.MODE: YES DOPPLER: YES COLOR FLOW: YES TDS: NO PORTABLE: YES DEFINITY: NO BUBBLE STUDY: NO DIAGNOSIS: ATRIAL FIBRILLATION WITH RAPID VENTRICULAR RESPONSE CARDIAC HISTORY: CATHERIZATION: NO SURGERY: NO PROSTHETIC VALVE: NO PACEMAKER: NO MEASUREMENTS (cm) DIASTOLIC (NORMALS) SYSTOLIC (NORMALS) IVSd 1.0 (0.6-1.2) LA Diam 3.3 (1.9-4.0) LVEF 58% LVIDd 4.2 (3.5-5.7) LVIDs 2.9 (2.0-3.5) %FS 31% LVPWd 1.1 (0.6-1.2) Ao Diam 2.5 (2.0-3.7) 2 DIMENSIONAL ASSESSMENT: RIGHT ATRIUM: NORMAL LEFT ATRIUM: NORMAL RIGHT VENTRICLE: NORMAL LEFT VENTRICLE: NORMLA TRICUSPID VALVE: TRACE TRICUSPID REGURGITATION MITRAL VALVE: MILD MITRAL REGURGITATION PULMONIC VALVE: NORMAL AORTIC VALVE: MILD AORTIC INSUFFICIENCY PERICARDIAL EFFUSION: NONE AORTIC ROOT: NORMAL LEFT VENTRICULAR WALL MOTION: NORMAL. DOPPLER/COLOR FLOW: SEE BELOW. COMMENTS: 1. NORMAL LEFT VENTRICULAR EJECTION FRACTION 55-60%. 2. MILD MITRAL REGURGITATION. 3. ATRIAL FIBRILLATION. TECHNOLOGIST: DICKSON BUCK
--- NOTE | 2024-07-24 13:40 | TEE ---
TRANSESOPHAGEAL ECHOCARDIOGRAM REPORT CARDIOLOGY DEPARTMENT DATE OF STUDY: 07/24/2024 HEIGHT: 5'4 WEIGHT: 210 DIAGNOSIS: ATRIAL FIBRILLATION, CARDIOVERSION CARDIAC HISTORY: CATHERIZATION: NO SURGERY: NO PROSTHETIC VALVE: NO PACEMAKER: NO 2 DIMENSIONAL ASSESSMENT: RIGHT ATRIUM: LEFT ATRIUM: RIGHT VENTRICLE: LEFT VENTRICLE: TRICUSPID VALVE: MITRAL VALVE: PULMONIC VALVE: AORTIC VALVE: PERICARDIAL EFFUSION: AORTIC ROOT: COMMENTS: [*] 1. JORGE LUIS PROBE WAS INSERTED WITH NO DIFFICULTY. 2. NO LEFT ATRIAL APPENDAGE THROMBUS IS SEEN. TECHNOLOGIST: CRISELDA PETERSON
--- NOTE | 2024-07-24 15:26 | P.DS ---
Admission Date: 07/23/24 Discharge Date: 07/24/24 Disposition: ROUTINE DISCHARGE Discharge Condition: GOOD Reason for Admission: A-fib RVR Consultations: CardiologyDr. Ramachandran Procedures: Successful JORGE LUIS cardioversion Brief History of Present Illness: 59-year-old female with history of atrial fibrillation, hypertension presents emergency department chief complaint of dizziness, palpitations. She reports that she was previously diagnosed with atrial fibrillation about 3 years ago and was started on sotalol as well as having a JORGE LUIS cardioversion, since then she had been in sinus rhythm as far she knows but the past few weeks has been dealing with atrial fibrillation again. She is seen by her transport assistant who recommended she continue her metoprolol and take Eliquis but her symptoms continue to get worse with dizziness and palpitations. She presented to the emergency department today with a heart rate around 110 and symptomatic, ED provider wishes to admit under observation. Case was discussed with cardiology who recommends initiating sotalol. Hospital Course: Assessment: Atrial fibrillation with rapid ventricular responseon chronic anticoagulation Hypertension Patient was admitted to the hospital for atrial fibrillation with rapid ventricular response, dizziness, palpitations. She is seen by cardiology who recommended initiating sotalol, sotalol was started on 07/23. Patient remained in atrial fibrillation overnight and JORGE LUIS cardioversion was performed on 07/24. Patient converted to sinus rhythm and has remained in sinus rhythm since then. Cardiology recommends continuing sotalol 80 mg by mouth twice daily and Eliquis 5 mg by mouth twice daily. Metoprolol should be discontinued. Transthoracic echocardiogram was also performed which showed normal left ventricular ejection fraction 55 to 60%, mild mitral regurgitation. Patient also had complaints of dizziness, has a history of vertigo. Dose of meclizine was given with mild improvement. Demonstrated Vasquez maneuver to patient. Please stop taking metoprolol Begin taking sotalol 80 mg by mouth twice daily Continue taking your Eliquis and other home medications as previously prescribed Please follow-up with cardiology in 1 to 2 weeks as well as your primary care doctor Vital Signs/Physical Exam: Temp Pulse Resp BP Pulse Ox 97.0 F 60 16 131/62 93 07/24/24 11:45 07/24/24 12:15 07/24/24 12:15 07/24/24 12:15 07/24/24 08:00 General: Alert, In no apparent distress, Oriented x3 HEENT: Atraumatic, PERRLA Neck: Supple, JVD not distended Respiratory: Clear to auscultation bilaterally, Normal air movement Cardiovascular: Regular rate/rhythm, Normal S1 S2 Gastrointestinal: Normal bowel sounds, No tenderness Musculoskeletal: No tenderness Integumentary: No rashes Neurological: Normal speech, Normal tone, Normal affect Laboratory Data at Discharge: WBC 5.10 thou/uL (4.3-10.9) 07/24/24 04:58 Hgb 12.6 g/dL (12.0-15.0) 07/24/24 04:58 Hct 39.1 % (36.0-45.0) 07/24/24 04:58 Plt Count 209 thou/uL (152-406) 07/24/24 04:58 PT 12.6 SECONDS (9.4-12.5) H 07/23/24 10:18 INR 1.13 07/23/24 10:18 Sodium 139 mEq/L (136-145) 07/24/24 04:58 Potassium 3.9 mEq/L (3.5-5.1) 07/24/24 04:58 BUN 20 mg/dL (7-18) H 07/24/24 04:58 Creatinine 0.74 mg/dL (0.55-1.02) 07/24/24 04:58 Glucose 98 mg/dL (74-106) 07/24/24 04:58 Magnesium 2.1 mg/dL (1.6-2.4) 07/23/24 10:18 Total Bilirubin 0.8 mg/dL (0.2-1.0) 07/24/24 04:58 AST 12 U/L (15-37) L 07/24/24 04:58 ALT 18 U/L (13-56) 07/24/24 04:58 Alkaline Phosphatase 50 U/L (45-117) 07/24/24 04:58 Home Medications: Fluoxetine HCl [Prozac] 20 mg PO DAILY 07/15/22 Pregabalin [Lyrica*] 50 mg PO BID 07/15/22 Apixaban [Eliquis] 5 mg PO BID #60 tab 07/16/22 Losartan Potassium [Cozaar] 25 mg PO DAILY 07/23/24 Metoprolol Tartrate [Lopressor*] 50 mg PO BID 6AM 6PM 07/23/24 Torsemide [Demadex] 20 mg PO DAILY 07/23/24 Physician Discharge Instructions: Patient was admitted to the hospital for atrial fibrillation with rapid ventricular response, dizziness, palpitations. She is seen by cardiology who recommended initiating sotalol, sotalol was started on 07/23. Patient remained in atrial fibrillation overnight and JORGE LUIS cardioversion was performed on 07/24. Patient converted to sinus rhythm and has remained in sinus rhythm since then. Cardiology recommends continuing sotalol 80 mg by mouth twice daily and Eliquis 5 mg by mouth twice daily. Metoprolol should be discontinued. Transthoracic echocardiogram was also performed which showed normal left ventricular ejection fraction 55 to 60%, mild mitral regurgitation. Patient also had complaints of dizziness, has a history of vertigo. Dose of meclizine was given with mild improvement. Demonstrated Vasquez maneuver to patient. Please stop taking metoprolol Begin taking sotalol 80 mg by mouth twice daily Continue taking your Eliquis and other home medications as previously prescribed Please follow-up with cardiology in 1 to 2 weeks as well as your primary care doctor Diet: Regular Activity: Ad rosa maria Followup: Alfredo Ramachandran MD [ACTIVE - CAN ADMIT] - 1-2 Weeks NONE,NONE [UNKNOWN] - Time spent managing pt's care (in minutes): 42
[2024-07-24 17:08] VITALS: BP 120/66; TEMP 97.6
--- NOTE | 2024-07-25 11:20 | OP ---
Date of Procedure: 07/24/2024 Surgeon: Alfredo Ramachandran Procedure Performed: Transesophageal echocardiogram cardioversion. Indication For Procedure: Atrial fibrillation. Complications: None. Estimated Blood Loss: None. Sedation: Done by Anesthesia team. Description Of Procedure: After risks, and benefits, and alternatives were explained to patient, pat ient agreed to proceed with the procedure and signed informed consent. The patient was brought back to the OR. Time-out was performed. Sedation was administered by Anesthesia team. JORGE LUIS probe inserte d. Images obtained and the JORGE LUIS probe was out. Next, a synchronized cardioversion with 200 joules wa s done. Patient converted back into sinus rhythm. Patient was moved back to recovery in stable cond ition. Assessment And Plan: Atrial fibrillation, status post transesophageal echocardiogram cardioversion, and plan will be to continue medical management. MONA Voice ID: [id number] Report ID: [id number]
--- NOTE | 2024-07-25 16:58 | EKG ---
Test Date: 2024-07-24 Test Time: 17:55:06 [place] Hand: SWAT MEASUREMENT RESULTS: Intervals: Rate: 63 MD: 170 QRSD: 94 QT: 436 QTc: 446 [place]: P: 64 MD: 170 QRS: 68 T: 38 INTERPRETIVE STATEMENTS: Sinus rhythm with premature atrial complexes Nonspecific T wave abnormality Abnormal ECG Compared to ECG 07/24/2024 11:55:27 T-wave abnormality now present Sinus bradycardia no longer present Electronically Signed On 07-25-24 16:54:54 CDT by George Mcclellan
--- NOTE | 2024-07-25 16:59 | EKG ---
Test Date: 2024-07-24 Test Time: 11:55:27 Program Planner: CODEY MEASUREMENT RESULTS: Intervals: Rate: 55 [place]: 172 QRSD: 92 QT: 460 QTc: 440 [place]: P: 51 [place]: 172 QRS: 28 T: 1 INTERPRETIVE STATEMENTS: Sinus bradycardia with premature atrial complexes Otherwise normal ECG Compared to ECG 07/23/2024 10:16:14 Atrial premature complex(es) now present Atrial fibrillation no longer present Electronically Signed On 07-25-24 16:55:19 CDT by George Mcclellan
== END 2024-07-24 19:45 | disposition home or self-care (01) | DRG 309 ==
LOC: ER 09:54 → ERHOLD 12:13 → 2ND 14:02 → OBSVTOIN 17:25
PROVIDERS: ADMIT Hospitalist; ATTEND Hospitalist
PROC: B24BZZ4 Ultrasonography of Heart with Aorta, Transesophageal (ICD-10-PCS; principal; 2024-07-24)
PROC: 5A2204Z Restoration of Cardiac Rhythm, Single (ICD-10-PCS; 2024-07-24)
DX: I48.19 Other persistent atrial fibrillation (principal); I50.32 Chronic diastolic (congestive) heart failure; I11.0 Hypertensive heart disease with heart failure; M79.7 Fibromyalgia; Z88.0 Allergy status to penicillin; Z88.2 Allergy status to sulfonamides; Z79.01 Long term (current) use of anticoagulants; Z79.899 Other long term (current) drug therapy
CPT/HCPCS: 36415; 71045; 80048; 80053; 83735; 83880; 84484; 85025; 85610; 92960; 93005; 93306; 93312; 99285; G0378; J0461; J2001; J2704; J3480; J7040; J8597